=== PATIENT | female | born 1955 | race African-American/Black ===

== ENCOUNTER 2021-01-17 05:25 | Day surgery (SDC) | payer OTHER, SELFPAY ==
[~2021-01-17] VITALS: Ht 170.2 cm; Wt 87.1 kg
[2021-01-17] MEDS ORDERED: MIDAZOLAM 2 MG/2 ML VIAL ONE (07:33)
[2021-01-17] MEDS ORDERED: fentaNYL citrate 0.05 MG/ML VIAL ONE (07:33)
[2021-01-17] MEDS ORDERED: MIDAZOLAM 2 MG/2 ML VIAL IVP ONE (08:00)
== END 2021-01-17 08:40 | disposition home or self-care (01) ==
LOC: MDS 05:25 → MMU 05:26 → MDS 08:40
PROVIDERS: ATTEND Internal Medicine Gastroenterology
DX: K21.00 Gastro-esophageal reflux disease with esophagitis, without bleeding (principal); K44.9 Diaphragmatic hernia without obstruction or gangrene; I11.0 Hypertensive heart disease with heart failure; I50.9 Heart failure, unspecified; J44.9 Chronic obstructive pulmonary disease, unspecified; Z95.0 Presence of cardiac pacemaker; Z98.84 Bariatric surgery status; Z20.822 Contact with and (suspected) exposure to COVID-19
CPT/HCPCS: 36415; 86677; J2250; J3010

== ENCOUNTER 2022-02-03 09:04 | Emergency (ER) | payer OTHER ==
[~2022-02-03] VITALS: Ht 170.2 cm; Wt 91.2 kg
[2022-02-03 09:11] VITALS: BP 111/73
--- NOTE | 2022-02-03 09:24 | NUR ---
66F presents to ED with c/o SOB today and cough x1day. Pt reports ran out of Rx meds for CHF, and feels that she is holding a lot of fluid. Pt states normal weight is 193 lbs, and currently weighing 201 lbs. Pt reports a productive cough since yesterday, denies any fevers, chills, body aches upon assessment. Pt changed into gown and placed on bedside monitor.
[2022-02-03 09:42] LABS: BASOPHILS # (AUTO) 0.1 K/uL (0.00-0.22); BASOPHILS % (AUTO) 1.3 % (0.0-2.0); EOSINOPHILS # (AUTO) 0.2 K/uL (0-0.4); EOSINOPHILS % (AUTO) 5.4 % (0.0-4.0); HEMATOCRIT 39.9 % (36-48); HEMOGLOBIN 13.2 g/dL (12.0-16.0); LYMPHOCYTES # (AUTO) 1.2 K/uL (2.5-16.5); LYMPHOCYTES % (AUTO) 26.8 % (20.5-51.1); MEAN CORPUSCULAR HEMOGLOBIN 33 pg (27-31); MEAN CORPUSCULAR HGB CONC 33 g/dL (33-37); MEAN CORPUSCULAR VOLUME 100.1 fL (80-94); MONOCYTES # (AUTO) 0.6 K/uL (0.8-1.0); MONOCYTES % (AUTO) 12.4 % (1.7-9.3); NEUTROPHILS # (AUTO) 2.4 K/uL (1.8-7.7); NEUTROPHILS % (AUTO) 54.1 % (42.2-75.2); PLATELET COUNT (AUTO) 154 K/uL (140-450); RED BLOOD CELL COUNT(AUTO) 3.99 MIL/uL (4.20-5.40); RED CELL DISTRIBUTION WIDTH 14.4 % (11.6-13.7); WHITE BLOOD COUNT (AUTO) 4.5 K/uL (4.8-10.8)
[2022-02-03 09:52] LABS: ANION GAP 11.8 (8-16); CARBON DIOXIDE 31.9 mmol/L (21-32); CREATININE 1.7 mg/dL (0.6-1.3); POTASSIUM 3.7 mmol/L (3.5-5.1)
[2022-02-03] MEDS ORDERED: BUME1TAB92 PO (10:32)
[2022-02-03] MEDS ORDERED: ZAR2.5 PO ×2 (10:32→10:39)
[2022-02-03] MEDS ORDERED: RIVA20TA PO (10:32)
[2022-02-03] MEDS ORDERED: CLOP-68 PO (10:32)
[2022-02-03 11:41] VITALS: BP 122/71
--- NOTE | 2022-02-03 11:41 | NUR ---
Patient discharged with v/s stable. Written and verbal after care instructions given and explained. Patient alert, oriented and verbalized understanding of instructions. Ambulatory with to car. All questions addressed prior to discharge. ID band removed. Patient advised to follow up with PMD. Rx of Bumetanide, Clopidogrel, Rivaroxaban and Metolazone given. Patient educated on indication of medication including possible reaction and side effects. Opportunity to ask questions provided and answered.
== END 2022-02-03 11:41 | disposition home or self-care (01) ==
LOC: MED 09:04
DX: I11.0 Hypertensive heart disease with heart failure (principal); I50.9 Heart failure, unspecified; R06.02 Shortness of breath; J44.9 Chronic obstructive pulmonary disease, unspecified; Z79.899 Other long term (current) drug therapy; Z88.8 Allergy status to other drugs, medicaments and biological substances; Z88.1 Allergy status to other antibiotic agents
CPT/HCPCS: 36415; 71045; 80048; 83880; 84484; 85025; 99284

== ENCOUNTER 2022-02-14 09:28 | Emergency (ER) | payer OTHER ==
[~2022-02-14] VITALS: Ht 170.2 cm; Wt 91.6 kg
[~2022-02-14 09:28] MED LIST: BUME1TAB92 PO; CLOP-68 PO; RIVA20TA PO; ZAR2.5 PO
[2022-02-14 09:59] VITALS: BP 123/77
--- NOTE | 2022-02-14 10:57 | NUR ---
COVID, FLU SWABS DONE.
[2022-02-14] MEDS ORDERED: ACET-10509 PO (12:20)
[2022-02-14] MEDS ORDERED: AZIT250T4 PO (12:20)
[2022-02-14] MEDS ORDERED: PRED20TA5 PO (12:20)
[2022-02-14] MEDS ORDERED: [UNRECOGNIZED DRUG - CODE] PO (12:20)
[2022-02-14 12:45] VITALS: BP 123/77
--- NOTE | 2022-02-14 12:45 | NUR ---
Patient discharged with v/s stable. Written and verbal after care instructions given and explained. Patient alert, oriented and verbalized understanding of instructions. Ambulatory with steady gait. All questions addressed prior to discharge. ID band removed. Patient advised to follow up with PMD. Rx of tylenol, zithromax, mucosa dm, deltasone (sent) given. Patient educated on indication of medication including possible reaction and side effects. Opportunity to ask questions provided and answered. dx by vega beasley
--- NOTE | 2022-02-14 13:44 | NUR ---
Note agnes in EDM - 02/14/22 at 1359 by MEDPMR Patient discharged with v/s stable. Written and verbal after care instructions given and explained. Patient alert, oriented and verbalized understanding of instructions. Ambulatory with steady gait. All questions addressed prior to discharge. ID band removed. Patient advised to follow up with PMD. Rx of tylenol, zithromax, mucosa dm, deltasone (sent) given. Patient educated on indication of medication including possible reaction and side effects. Opportunity to ask questions provided and answered. dx by vega beasley
== END 2022-02-14 12:45 | disposition home or self-care (01) ==
LOC: MED 09:28
DX: J44.1 Chronic obstructive pulmonary disease with (acute) exacerbation (principal); Z20.822 Contact with and (suspected) exposure to COVID-19; I11.0 Hypertensive heart disease with heart failure; I50.9 Heart failure, unspecified; Z79.899 Other long term (current) drug therapy; Z88.8 Allergy status to other drugs, medicaments and biological substances; Z95.0 Presence of cardiac pacemaker
CPT/HCPCS: 71045; 99284

== ENCOUNTER 2022-03-01 16:19 | Emergency (ER) | payer OTHER ==
[~2022-03-01] VITALS: Ht 170.2 cm; Wt 92.5 kg
[~2022-03-01 16:19] MED LIST changes: +ACET-10509 PO; +AZIT250T4 PO; +PRED20TA5 PO; +[UNRECOGNIZED DRUG - CODE] PO
[2022-03-01 16:22] VITALS: BP 137/71
[2022-03-01] MEDS ORDERED: ALBUTEROL 0.083% 2.5 MG/3 ML NEBU INH ONE (17:40)
[2022-03-01] MEDS ORDERED: predniSONE 20 MG TAB PO ONE (17:40)
[2022-03-01 18:15] LABS: BASOPHILS # (AUTO) 0.1 K/uL (0.00-0.22); EOSINOPHILS # (AUTO) 0.2 K/uL (0-0.4); EOSINOPHILS % (AUTO) 2.4 % (0.0-4.0); HEMATOCRIT 41.4 % (36-48); LYMPHOCYTES # (AUTO) 1.5 K/uL (2.5-16.5); LYMPHOCYTES % (AUTO) 18.8 % (20.5-51.1); MEAN CORPUSCULAR HEMOGLOBIN 33 pg (27-31); MEAN CORPUSCULAR HGB CONC 34 g/dL (33-37); MEAN CORPUSCULAR VOLUME 98.4 fL (80-94); MONOCYTES # (AUTO) 0.7 K/uL (0.8-1.0); MONOCYTES % (AUTO) 8.6 % (1.7-9.3); NEUTROPHILS # (AUTO) 5.4 K/uL (1.8-7.7); NEUTROPHILS % (AUTO) 69.2 % (42.2-75.2); PLATELET COUNT (AUTO) 175 K/uL (140-450); RED BLOOD CELL COUNT(AUTO) 4.21 MIL/uL (4.20-5.40); RED CELL DISTRIBUTION WIDTH 14.1 % (11.6-13.7); WHITE BLOOD COUNT (AUTO) 7.8 K/uL (4.8-10.8)
[2022-03-01 18:29] LABS: ANION GAP 15.1 (8-16); CARBON DIOXIDE 28.8 mmol/L (21-32); CREATININE 1.6 mg/dL (0.6-1.3); POTASSIUM 3.9 mmol/L (3.5-5.1)
[2022-03-01] MEDS ORDERED: PRED20TA5 PO (19:27)
[2022-03-01 19:33] VITALS: BP 137/71
== END 2022-03-01 19:33 | disposition home or self-care (01) ==
LOC: MED 16:19
DX: J44.1 Chronic obstructive pulmonary disease with (acute) exacerbation (principal); Z20.822 Contact with and (suspected) exposure to COVID-19; I11.0 Hypertensive heart disease with heart failure; I50.9 Heart failure, unspecified; Z79.899 Other long term (current) drug therapy; Z79.2 Long term (current) use of antibiotics; Z79.01 Long term (current) use of anticoagulants; Z88.8 Allergy status to other drugs, medicaments and biological substances
CPT/HCPCS: 36415; 71045; 80048; 83880; 84484; 85025; 87426; 87804; 94640; 99285; J7512; J7613; 93005

== ENCOUNTER 2022-03-14 14:46 | Emergency (ER) | payer OTHER ==
[~2022-03-14] VITALS: Ht 175.3 cm; Wt 90.7 kg
--- NOTE | 2022-03-14 15:01 | NUR ---
NA [id number]
[2022-03-14 15:06] VITALS: BP 122/68
--- NOTE | 2022-03-14 15:15 | NUR ---
66/f WALKED IN C/O DIZZINESS AND GEN WEAK ONSET THIS MORNING. PT REPORTS ROOM IS SPINNING. DENIES NVD. AAO4, AMBULATORY, VITALS STABLE. ON TRANSPLANTER ORCHID, ON GOWN. PMH: CHOLESTEROL, COPD, CHF, HTN
--- NOTE | 2022-03-14 15:30 | NUR ---
BLOOD DRAWN AND SENT TO LAB
[2022-03-14 15:42] LABS: BASOPHILS # (AUTO) 0.1 K/uL (0.00-0.22); BASOPHILS % (AUTO) 1.2 % (0.0-2.0); EOSINOPHILS # (AUTO) 0.3 K/uL (0-0.4); EOSINOPHILS % (AUTO) 4.2 % (0.0-4.0); HEMOGLOBIN 13.5 g/dL (12.0-16.0); LYMPHOCYTES # (AUTO) 1.3 K/uL (2.5-16.5); LYMPHOCYTES % (AUTO) 19.9 % (20.5-51.1); MEAN CORPUSCULAR HEMOGLOBIN 33 pg (27-31); MEAN CORPUSCULAR HGB CONC 33 g/dL (33-37); MEAN CORPUSCULAR VOLUME 101.5 fL (80-94); MONOCYTES # (AUTO) 0.6 K/uL (0.8-1.0); MONOCYTES % (AUTO) 9.8 % (1.7-9.3); NEUTROPHILS # (AUTO) 4.2 K/uL (1.8-7.7); NEUTROPHILS % (AUTO) 64.9 % (42.2-75.2); PLATELET COUNT (AUTO) 165 K/uL (140-450); RED BLOOD CELL COUNT(AUTO) 4.04 MIL/uL (4.20-5.40); RED CELL DISTRIBUTION WIDTH 14.6 % (11.6-13.7); WHITE BLOOD COUNT (AUTO) 6.5 K/uL (4.8-10.8)
[2022-03-14 15:42] LABS: APPEARANCE,URINE SL CLOUDY (CLEAR); BILIRUBIN,URINE NEGATIVE (NEGATIVE); BLOOD, URINE NEGATIVE (NEGATIVE); COLOR,URINE YELLOW (YELLOW); LEUKOCYTE ESTERASE ,URINE NEGATIVE (NEGATIVE); NITRITE, URINE NEGATIVE (NEGATIVE); UGLUCOSE NEGATIVE (NEGATIVE)
[2022-03-14] MEDS: ONDANSETRON 4 MG/2 ML VIAL IVP ONE (15:46)
[2022-03-14] MEDS: NACL 0.9% 500 ML IV ONE (15:46)
--- NOTE | 2022-03-14 15:52 | NUR ---
XR DONE AT BEDSIDE
[2022-03-14 16:05] LABS: ALBUMIN 3.5 g/dL (3.4-5.0); ANION GAP 9.4 (8-16); ASPARTATE AMINOTRANSFERASE 21 U/L (15-37); CARBON DIOXIDE 31.8 mmol/L (21-32); CHLORIDE 107 mmol/L (98-107); CREATININE 1.5 mg/dL (0.6-1.3); GFR ARICAN-AMERICAN 45 mL/min (>90); GLUCOSE 101 mg/dL (74-106); POTASSIUM 5.2 mmol/L (3.5-5.1); TOTAL BILIRUBIN 0.4 mg/dL (0.0-1.0); UREA NITROGEN, BLOOD 31 mg/dL (7-18)
[2022-03-14 16:06] LABS: SODIUM SERUM 143 mmol/L (136-145)
[2022-03-14] MEDS ORDERED: ONDA-188 PO (16:38)
[2022-03-14] MEDS ORDERED: SODI10PO PO (16:41)
== END 2022-03-14 16:45 | disposition home or self-care (01) ==
LOC: MED 14:46
DX: R42 Dizziness and giddiness (principal); E87.6 Hypokalemia; I11.0 Hypertensive heart disease with heart failure; I50.9 Heart failure, unspecified; J44.9 Chronic obstructive pulmonary disease, unspecified; E87.5 Hyperkalemia; Z95.0 Presence of cardiac pacemaker; Z79.899 Other long term (current) drug therapy; Z88.8 Allergy status to other drugs, medicaments and biological substances; Z88.1 Allergy status to other antibiotic agents
CPT/HCPCS: 36415; 71045; 80053; 81003; 84484; 85025; 93005; 96374; 99285; J2405; J7030

== ENCOUNTER 2022-03-25 19:56 | Inpatient (IN) | payer OTHER ==
[~2022-03-25] VITALS: Ht 170.2 cm; Wt 93.0 kg
[~2022-03-25 19:56] MED LIST changes: +ONDA-188 PO; +SODI10PO PO
[2022-03-25 20:11] VITALS: BP 128/77
--- NOTE | 2022-03-25 20:14 | NUR ---
TO LOBBY A/W BED AMBULATORY
[2022-03-25 22:31] LABS: BASOPHILS # (AUTO) 0.1 K/uL (0.00-0.22); BASOPHILS % (AUTO) 1.3 % (0.0-2.0); EOSINOPHILS # (AUTO) 0.2 K/uL (0-0.4); EOSINOPHILS % (AUTO) 3.1 % (0.0-4.0); HEMATOCRIT 43.9 % (36-48); HEMOGLOBIN 14.4 g/dL (12.0-16.0); LYMPHOCYTES # (AUTO) 1.9 K/uL (2.5-16.5); LYMPHOCYTES % (AUTO) 23.9 % (20.5-51.1); MEAN CORPUSCULAR HEMOGLOBIN 33 pg (27-31); MEAN CORPUSCULAR HGB CONC 33 g/dL (33-37); MEAN CORPUSCULAR VOLUME 101.1 fL (80-94); MONOCYTES # (AUTO) 0.8 K/uL (0.8-1.0); NEUTROPHILS # (AUTO) 4.9 K/uL (1.8-7.7); NEUTROPHILS % (AUTO) 61.7 % (42.2-75.2); PLATELET COUNT (AUTO) 164 K/uL (140-450); RED BLOOD CELL COUNT(AUTO) 4.35 MIL/uL (4.20-5.40); RED CELL DISTRIBUTION WIDTH 15.1 % (11.6-13.7); WHITE BLOOD COUNT (AUTO) 7.9 K/uL (4.8-10.8)
[2022-03-25 22:59] LABS: ALBUMIN 3.7 g/dL (3.4-5.0); ANION GAP 14.4 (8-16); ASPARTATE AMINOTRANSFERASE 15 U/L (15-37); CARBON DIOXIDE 31.5 mmol/L (21-32); CHLORIDE 100 mmol/L (98-107); CREATININE 1.7 mg/dL (0.6-1.3); GFR ARICAN-AMERICAN 39 mL/min (>90); GLUCOSE 95 mg/dL (74-106); POTASSIUM 3.9 mmol/L (3.5-5.1); SODIUM SERUM 142 mmol/L (136-145); TOTAL BILIRUBIN 0.4 mg/dL (0.0-1.0); UREA NITROGEN, BLOOD 40 mg/dL (7-18)
--- NOTE | 2022-03-26 | NUR ---
Ambulatory to bed 7, on nuclear monitoring technician
--- NOTE | 2022-03-26 00:10 | NUR ---
66 Y/O F presents with difficulty breathing xtoday. pt stated she feels SOB with R lower back pain. pt denies any NVD. pt is A&Ox4, skin intact. PMH- HTN,CHF,COPD,pacemaker, gastric sleeve allergies- IVELISSE-Inhibitors
--- NOTE | 2022-03-26 00:29 | NUR ---
Dr. Valderrama examining patient.
[2022-03-26] MEDS ORDERED: BUMETANIDE 1 MG TAB PO SCH (00:35)
[2022-03-26] MEDS ORDERED: ALBUTEROL 0.083% 2.5 MG/3 ML NEBU INH ONE (00:35)
[2022-03-26] MEDS ORDERED: ASPIRIN 325 MG TAB PO ONE (00:35)
--- NOTE | 2022-03-26 00:56 | NUR ---
SPOKE TO KAREN FROM [facility] FOR CLINICALS. STATES PT CAN BE ADMITTED FOR OBSERVATIONS TELE. ADMITING MADE AWARE
--- NOTE | 2022-03-26 01:17 | NUR ---
pt tolerated food well
[2022-03-26] MEDS ORDERED: LORazepam 1 MG TAB PO PRN (01:40)
[2022-03-26] MEDS ORDERED: ONDANSETRON 4 MG/2 ML VIAL IVP PRN (01:50)
[2022-03-26] MEDS: BUMETANIDE 1 MG/4 ML VIAL IV SCH ×3 (01:50→21:20)
--- NOTE | 2022-03-26 04:38 | NUR ---
pt resting, on engine monitor
--- NOTE | 2022-03-26 05:45 | NUR ---
pt ambulatory to restroom
--- NOTE | 2022-03-26 05:50 | NUR ---
pt back in room, on potline monitor. awaiting admission
--- NOTE | 2022-03-26 06:26 | NUR ---
Dr. Hairston examining patient.
--- NOTE | 2022-03-26 07:28 | NUR ---
transfer of care to [facility]
--- NOTE | 2022-03-26 07:30 | NUR ---
Report recieved from LINETTE Blake for transfer of care.
--- NOTE | 2022-03-26 08:17 | NUR ---
Patient will be admitted to care of Dr. Minor. Admited to Telemetry. Will go to room 119-A. Belongings list completed. Report to TEREZA Parsons.
[2022-03-26 08:20] VITALS: BP 134/56
--- NOTE | 2022-03-26 08:20 | NUR ---
RECEIVED REPORT FROM ER NURSE JUAN FOR CONTINUITY OF CARE. STABLE ON TRANSPORT AND NO SIGNS OF DISTRESS. PT IS A&OX4, ON RA, SKIN INTACT, NO COMPLAINT OF PAIN AND AMBULATES TO RESTROOM. PT HAS AN IV ON HER R WRIST 22G THAT IS INTACT AND SALINE LOCKED. ALL SAFETY MEASURES IN PLACE WITH CALL LIGHT WITHIN REACH AND BED IN LOW POSITION. WILL CONTINUE TO MONITOR.
[2022-03-26] MEDS ORDERED: RIVAROXABAN 10 MG TAB PO SCH (09:00)
[2022-03-26] MEDS: DOCUSATE SODIUM 100 MG GELCAP PO SCH (09:00)
[2022-03-26] MEDS: metOLazone 2.5 MG TAB PO SCH (09:19)
[2022-03-26] MEDS: CLOPIDOGREL 75 MG TAB PO SCH (09:20)
--- NOTE | 2022-03-26 09:34 | NUR ---
PATIENT HAS BEEN SCREENED AND CATEGORIZED MODERATE NUTRITION RISK. PATIENT WILL BE SEEN WITHIN 3-5 DAYS OF ADMISSION. REVIEWED BY DON SANTACRUZ RD
[2022-03-26 12:00] VITALS: BP 119/89
[2022-03-26 16:00] VITALS: BP 160/84
[2022-03-26] MEDS: diphenhydrAMINE 50 MG/ML VIAL IVP PRN (18:44)
--- NOTE | 2022-03-26 19:10 | NUR ---
ENDORSED PT TO NIGHTSHIFT NURSE FOR CONTINUITY OF CARE. PT IS STABLE AT THIS TIME.
--- NOTE | 2022-03-26 19:11 | NUR ---
RECD. RESTING IN BED, AWAKE, A/OX4. RESPIRATION EVEN AND UNLABORED. ON ROOM AIR. IV SALINE LOCK AT THE RIGHT WRIST G22 AND LEFT AC G20, PATENT AND INTACT. AMBULATORY TO THE BATHROOM. DENIES PAIN 0/10.
[2022-03-26 20:00] VITALS: BP 119/93
--- NOTE | 2022-03-26 20:00 | NUR ---
Patient's Plan of Care was discussed and reviewed with WOODWORKING CRAFTSMAN: SHASHI MONGE
[2022-03-26] MEDS: RIVAROXABAN 10 MG TAB PO SCH (21:32)
--- NOTE | 2022-03-26 21:32 | NUR ---
SLEEPING COMFORTABLY IN BED. ADMINISTERED SCHEDULED MEDICATION.
[2022-03-27] VITALS: BP 100/58
--- NOTE | 2022-03-27 | NUR ---
SINUS RHYTHM ON TELE MONITORING BUT WITH FREQ MULTI FOCAL PVCs, BBB. VS STABLE. DENIES PAIN 0/10.
--- NOTE | 2022-03-27 02:00 | NUR ---
STILL SLEEPING COMFORTABLY IN BED.
[2022-03-27 04:00] VITALS: BP 111/63
--- NOTE | 2022-03-27 04:00 | NUR ---
SR ON TELE MONITORING WITH BUNDLE BRANCH BLOCK AND MULTI FOCAL PVCs, PATIENT VS REMAIN STABLE.
[2022-03-27 06:09] LABS: BASOPHILS # (AUTO) 0.1 K/uL (0.00-0.22); BASOPHILS % (AUTO) 0.8 % (0.0-2.0); EOSINOPHILS # (AUTO) 0.2 K/uL (0-0.4); EOSINOPHILS % (AUTO) 2.7 % (0.0-4.0); HEMATOCRIT 47.1 % (36-48); HEMOGLOBIN 15.7 g/dL (12.0-16.0); LYMPHOCYTES # (AUTO) 1.5 K/uL (2.5-16.5); LYMPHOCYTES % (AUTO) 20.7 % (20.5-51.1); MEAN CORPUSCULAR HEMOGLOBIN 33 pg (27-31); MEAN CORPUSCULAR HGB CONC 33 g/dL (33-37); MONOCYTES # (AUTO) 0.9 K/uL (0.8-1.0); MONOCYTES % (AUTO) 12.6 % (1.7-9.3); NEUTROPHILS # (AUTO) 4.6 K/uL (1.8-7.7); NEUTROPHILS % (AUTO) 63.2 % (42.2-75.2); PLATELET COUNT (AUTO) 174 K/uL (140-450); RED BLOOD CELL COUNT(AUTO) 4.76 MIL/uL (4.20-5.40); RED CELL DISTRIBUTION WIDTH 14.8 % (11.6-13.7); WHITE BLOOD COUNT (AUTO) 7.3 K/uL (4.8-10.8)
--- NOTE | 2022-03-27 07:10 | NUR ---
CONDITION REMAIN STABLE. ENDORSED TO NICHOLAS SUE FOR CONTINUITY OF CARE.
--- NOTE | 2022-03-27 07:11 | NUR ---
ASSUMED CONTINUITY OF CARE. INITIAL ASSESSMENT DONE. EXPLAINED DIAGNOSIS, PLAN OF CARE, PAIN MANAGEMENT TEACHING, FLUID RESTRICTION, USE OF CALL LIGHT/BED/TV/BATHROOM. VERBALIZED UNDERSTANDING. CALL LIGHT WITHIN REACH.
[2022-03-27 08:03] LABS: ALBUMIN 3.9 g/dL (3.4-5.0); ANION GAP 15.1 (8-16); CARBON DIOXIDE 31.7 mmol/L (21-32); CREATININE 1.7 mg/dL (0.6-1.3); TOTAL BILIRUBIN 0.9 mg/dL (0.0-1.0)
[2022-03-27 08:50] VITALS: BP 118/73
--- NOTE | 2022-03-27 08:50 | NUR ---
RE-CHECKED VITALS SIGNS. NO C/O PAIN. VS WITHIN NORMAL LIMIT AND DOCUMENTED.
[2022-03-27 09:08] LABS: POTASSIUM 2.8 mmol/L (3.5-5.1)
[2022-03-27] MEDS: BUMETANIDE 1 MG/4 ML VIAL IV SCH ×2 (09:35→20:56)
[2022-03-27] MEDS: DOCUSATE SODIUM 100 MG GELCAP PO SCH (09:43)
[2022-03-27] MEDS: metOLazone 2.5 MG TAB PO SCH (09:44)
[2022-03-27] MEDS: CLOPIDOGREL 75 MG TAB PO SCH (09:44)
[2022-03-27] MEDS ORDERED: POTASSIUM CHLORIDE 10 MEQ TABER PO SCH ×2 (10:00→12:00)
[2022-03-27 12:00] VITALS: BP 134/82
--- NOTE | 2022-03-27 15:20 | NUR ---
C/O ITCHINESS ON BUE. NO SKIN RASH, NO SKIN REDNESS. NO SOB, NOTED. WILL MEDICATE PER MD ORDER.
[2022-03-27] MEDS: diphenhydrAMINE 50 MG/ML VIAL IVP PRN (15:23)
[2022-03-27 16:00] VITALS: BP 111/60
--- NOTE | 2022-03-27 16:30 | NUR ---
SEEN WATCHING TV AT THIS TIME. NO C/O ITCHINESS. NO SOB, NOTED. ASKED TO CALL NURSE IF NEEDS HELP. VERBALIZED UNDERSTANDING. CALL LIGHT WITHIN REACH.
--- NOTE | 2022-03-27 19:11 | NUR ---
REPORT GIVEN TO ALFREDO FAJARDO FOR CONTINUITY OF CARE. IN STABLE CONDITION.
--- NOTE | 2022-03-27 19:15 | NUR ---
RECEIVED PT FROM NURSE PETERSON FOR CONTINUITY OF CARE. PT ASLEEP IN BED.ON ROOM AIR, BREATHING EVEN AND UNLABORED. NO RESPIRATORY DISTRESS NOTED. IV ON R WRIST G22,SL.SKIN WARM, DRY AND INTACT. ALL PRECAUTIONS IN PLACE. CALL LIGHT WITHIN REACH. WILL CONTINUE TO MONITOR.
[2022-03-27 20:00] VITALS: BP 136/66
[2022-03-27] MEDS: RIVAROXABAN 10 MG TAB PO SCH (20:57)
--- NOTE | 2022-03-27 22:00 | NUR ---
Complaining of pain to IV site. Restarted on L HAND G22. Successful after 1 attempt.Will observe for any signs of infiltration.
--- NOTE | 2022-03-27 22:10 | NUR ---
SCHEDULED MEDICATIONS. NO DRUG REACTIONS NOTED. ALL PRECAUTIONS IN PLACE. CALL LIGHT WITHIN REACH. WILL CONTINUE TO MONITOR.
[2022-03-27] MEDS: ZOLPIDEM 5 MG TAB PO PRN (22:11)
[2022-03-28] VITALS: BP 96/75
[2022-03-28 04:00] VITALS: BP 112/53
--- NOTE | 2022-03-28 07:05 | NUR ---
PT IS STABLE. NO ACUTE EVENTS THROUGHOUT THE NIGHT.NO S/SX OF DISTRESS NOTED. ALL NEEDS ATTENDED. NO COMPLAINS AT THIS MOMENT.ALL PRECAUTIONS IN PLACE. CALL LIGHT WITHIN REACH. WILL ENDORSE TO DAY SHIFT RN.
--- NOTE | 2022-03-28 07:08 | NUR ---
ASSUMED CONTINUITY OF CARE. INITIAL ASSESSMENT DONE. KEEP COMFORTABLE ON BED. EXPLAINED DIAGNOSIS, PLAN OF CARE, PAIN MANAGEMENT TEACHING, USE OF CALL LIGHT/BED/TV/BATHROOM. VERBALIZED UNDERSTANDING. CALL LIGHT WITHIN REACH.
[2022-03-28 07:29] LABS: BASOPHILS % (AUTO) 0.7 % (0.0-2.0); EOSINOPHILS # (AUTO) 0.2 K/uL (0-0.4); EOSINOPHILS % (AUTO) 2.8 % (0.0-4.0); HEMATOCRIT 47.8 % (36-48); HEMOGLOBIN 15.9 g/dL (12.0-16.0); LYMPHOCYTES # (AUTO) 1.4 K/uL (2.5-16.5); LYMPHOCYTES % (AUTO) 23.4 % (20.5-51.1); MEAN CORPUSCULAR HEMOGLOBIN 33 pg (27-31); MEAN CORPUSCULAR HGB CONC 33 g/dL (33-37); MEAN CORPUSCULAR VOLUME 99.5 fL (80-94); MONOCYTES # (AUTO) 0.8 K/uL (0.8-1.0); MONOCYTES % (AUTO) 14.4 % (1.7-9.3); NEUTROPHILS # (AUTO) 3.5 K/uL (1.8-7.7); NEUTROPHILS % (AUTO) 58.7 % (42.2-75.2); PLATELET COUNT (AUTO) 159 K/uL (140-450); RED CELL DISTRIBUTION WIDTH 14.9 % (11.6-13.7); WHITE BLOOD COUNT (AUTO) 5.9 K/uL (4.8-10.8)
[2022-03-28 07:54] LABS: ALBUMIN 3.9 g/dL (3.4-5.0); ANION GAP 15.6 (8-16); MAGNESIUM 2.1 mg/dL (1.8-2.4); TOTAL BILIRUBIN 0.9 mg/dL (0.0-1.0)
[2022-03-28 08:00] VITALS: BP 108/71
[2022-03-28 08:30] LABS: POTASSIUM 2.6 mmol/L (3.5-5.1)
[2022-03-28] MEDS ORDERED: POTASSIUM CHLORIDE 10 MEQ TABER PO SCH ×2 (09:00→13:30)
[2022-03-28] MEDS: BUMETANIDE 1 MG/4 ML VIAL IV SCH ×2 (09:00→20:42)
[2022-03-28] MEDS: metOLazone 2.5 MG TAB PO SCH (09:00)
[2022-03-28] MEDS ORDERED: COMMUNICATION ORDER MC PRN ×2 (09:00→09:05)
[2022-03-28] MEDS: CLOPIDOGREL 75 MG TAB PO SCH (09:13)
[2022-03-28] MEDS: DOCUSATE SODIUM 100 MG GELCAP PO SCH (09:13)
[2022-03-28] MEDS ORDERED: POTASSIUM CHLORIDE 40 MEQ, LIDOCAINE 1% 25 MG in NACL 0.9% 250 ML IV SCH (09:30)
--- NOTE | 2022-03-28 11:31 | NUR ---
PAGED DR. CISSE REGARDING PT. REFUSAL OF K-RIDER INFUSION DUE TO C/O PAIN AT IV SITE. INFORMED CHARGE NURSE KIRAN FAJARDO.
[2022-03-28 12:00] VITALS: BP_SYST 108; BP_SYST 112; BP_DIAS 71; BP_DIAS 95
--- NOTE | 2022-03-28 15:45 | NUR ---
DR. CISSE CAME AND SPOKE TO PT. AT BEDSIDE.
[2022-03-28 16:00] VITALS: BP 123/59
--- NOTE | 2022-03-28 16:25 | NUR ---
DC PLANNING DC PLANNING ASSESSMENT COMPLETE SEE ASSESSMENT FOR DETAILS PT REPORTS TENTATIVE DC PLAN IS TO RETURN HOME WITH BF PROVIDING TRANSPORTATION, WHEN MEDICALLY STABLE. Addendum: 03/28/22 at 1626 by Wilfred PARNELL Amended: Links added.
--- NOTE | 2022-03-28 17:46 | NUR ---
PAGED DR. CISSE TO CLARIFY ORDER OF XARELTO 20 MG PO HS AND PLAVIX 75 MG PO DAILY.
--- NOTE | 2022-03-28 18:48 | NUR ---
DR. CISSE PAGED AND ORDERED TO CONTINUE XARELTO AND PLAVIX ORDERED. CHARGE NURSE KIRAN -TEREZA CALLED PHARMACY AND RELAYED MESSAGE FROM DR. CISSE TO CONTINUE BOTH MEDS MENTIONED.
--- NOTE | 2022-03-28 19:05 | NUR ---
REPORT GIVEN TO ALFREDO BRAN PT. IN STABLE CONDITION.
--- NOTE | 2022-03-28 19:10 | NUR ---
RECEIVED PT FROM NURSE PETERSON FOR CONTINUITY OF CARE. PT ASLEEP IN BED.ON ROOM AIR, BREATHING EVEN AND UNLABORED. NO RESPIRATORY DISTRESS NOTED. IV ON l hand G22,SL.SKIN WARM, DRY AND INTACT. ALL PRECAUTIONS IN PLACE. CALL LIGHT WITHIN REACH. WILL CONTINUE TO MONITOR.
[2022-03-28 20:00] VITALS: BP 112/67
[2022-03-28] MEDS: RIVAROXABAN 10 MG TAB PO SCH (20:42)
[2022-03-28] MEDS: ZOLPIDEM 5 MG TAB PO PRN (20:43)
--- NOTE | 2022-03-28 21:06 | NUR ---
SCHEDULED MEDICATIONS. NO DRUG REACTIONS NOTED. PT REFUSED BUMEX. ALL PRECAUTIONS IN PLACE. CALL LIGHT WITHIN REACH. WILL CONTINUE TO MONITOR.
[2022-03-29] VITALS: BP 116/71
--- NOTE | 2022-03-29 | NUR ---
VITALS STABLE. NO ACUTE DISTRESS NOTED. NO COMPLAINS OF PAIN. ALL PRECAUTIONS IN PLACE. WILL CONTINUE TO MONITOR.
--- NOTE | 2022-03-29 03:30 | NUR ---
PT ASLEEP. NO S/SX OF DISTRESS NOTED.VISIBLE CHEST RISE AND FALL. ALL PRECAUTIONS IN PLACE. WILL CONTINUE TO MONITOR.
[2022-03-29 04:00] VITALS: BP 109/60
[2022-03-29 07:06] LABS: BASOPHILS # (AUTO) 0.1 K/uL (0.00-0.22); BASOPHILS % (AUTO) 0.9 % (0.0-2.0); EOSINOPHILS # (AUTO) 0.2 K/uL (0-0.4); EOSINOPHILS % (AUTO) 3.3 % (0.0-4.0); HEMATOCRIT 47.3 % (36-48); HEMOGLOBIN 15.7 g/dL (12.0-16.0); LYMPHOCYTES # (AUTO) 1.2 K/uL (2.5-16.5); LYMPHOCYTES % (AUTO) 20.4 % (20.5-51.1); MEAN CORPUSCULAR HEMOGLOBIN 33 pg (27-31); MEAN CORPUSCULAR HGB CONC 33 g/dL (33-37); MONOCYTES # (AUTO) 0.9 K/uL (0.8-1.0); MONOCYTES % (AUTO) 15.5 % (1.7-9.3); NEUTROPHILS # (AUTO) 3.6 K/uL (1.8-7.7); NEUTROPHILS % (AUTO) 59.9 % (42.2-75.2); PLATELET COUNT (AUTO) 144 K/uL (140-450); RED BLOOD CELL COUNT(AUTO) 4.73 MIL/uL (4.20-5.40); RED CELL DISTRIBUTION WIDTH 14.7 % (11.6-13.7)
--- NOTE | 2022-03-29 07:30 | NUR ---
RECIEVED PATIENT FROM PLANNING DIVISION SUPERINTENDENT NURSE.PATIENT IS VERBALLY ACTIVE.VITALS ARE STABLE.NO DISTRESS NOTED.ALL SAFETY MEASURES IN PLACE.WILL CONTINUE TO MONITOR.
[2022-03-29 07:38] LABS: ALBUMIN 3.9 g/dL (3.4-5.0); ANION GAP 12.9 (8-16); CARBON DIOXIDE 31.5 mmol/L (21-32); CREATININE 1.8 mg/dL (0.6-1.3); MAGNESIUM 2.3 mg/dL (1.8-2.4); POTASSIUM 3.4 mmol/L (3.5-5.1); TOTAL BILIRUBIN 1.1 mg/dL (0.0-1.0)
[2022-03-29 08:00] VITALS: BP 112/67
--- NOTE | 2022-03-29 08:10 | NUR ---
PATIENT COMPLAINED OF CHEST PAIN, TELE STRIPS SHOWS PACED RHYTHM.NOTIFIED MD REGARDING THE ORDERS.MEDICATED PER PRN ORDERS.ON O2 2 L.NO OTHER DISTRESS NOTED.WILL CONTINUE TO MONITOR.
--- NOTE | 2022-03-29 08:15 | NUR ---
PATIENT REFUSED METOLAZONE TAB.SHE TOLD SHE NEEDS TOTALK TO THE DOCTOR. NOTIFIED
[2022-03-29] MEDS: MORPHINE SULFATE 2 MG/ML SYR IVP PRN ×2 (08:26→17:11)
[2022-03-29] MEDS ORDERED: POTASSIUM CHLORIDE 10 MEQ TABER PO SCH (08:30)
[2022-03-29] MEDS: BUMETANIDE 1 MG/4 ML VIAL IV SCH (08:45)
[2022-03-29] MEDS: CLOPIDOGREL 75 MG TAB PO SCH (08:46)
[2022-03-29] MEDS: DOCUSATE SODIUM 100 MG GELCAP PO SCH (08:46)
[2022-03-29] MEDS: metOLazone 2.5 MG TAB PO SCH (08:53)
[2022-03-29] MEDS ORDERED: PANTOPRAZOLE 40 MG TABEC PO SCH (09:00)
[2022-03-29 12:00] VITALS: BP 121/67
--- NOTE | 2022-03-29 12:59 | NUR ---
PATIENT ALERT AND ORIENTED.NO COMPLAINS OF PAIN NOW.FREQUENT ROUNDS DONE.ALL SAFETY MEASURES IN PLACE.WILL CONTINUE TO MONITOR.
--- NOTE | 2022-03-29 15:44 | NUR ---
03/29/22 RD INITIAL ASSESSMENT COMPLETED PLEASE REFER TO NUTRITION ASSESSMENT UNDER CARE ACTIVITY FOR ESTIMATED NUTRITIONAL NEEDS. 1. CONTINUE CARDIAC DIET TOLERATED 2. PROVIDED NUTRITION EDUCATION AND HANDOUTS FOR CHF 3. MONITOR PO INTAKE 4. RD TO FOLLOW-UP 7 DAYS, LOW RISK REVIEWED BY DON SANTACRUZ RD
--- NOTE | 2022-03-29 17:00 | NUR ---
DISCHARGED THE PATIENT REGARDING THE ORDER.ALL DISCHARGE INSTRUCTIONS GIVEN,VITALS ARE STABLE.
[2022-03-29 17:36] VITALS: BP 125/80
== END 2022-03-29 18:39 | disposition home or self-care (01) | DRG 194 ==
LOC: MED 19:56 → MTU 03-26 01:48 → OBSVTOIN 03-26 15:12
PROVIDERS: ADMIT Hospitalist; ATTEND Hospitalist
DX: I11.0 Hypertensive heart disease with heart failure (principal); N17.9 Acute kidney failure, unspecified; R65.10 Systemic inflammatory response syndrome (SIRS) of non-infectious origin without acute organ dysfunction; E87.6 Hypokalemia; J44.9 Chronic obstructive pulmonary disease, unspecified; N28.9 Disorder of kidney and ureter, unspecified; Z20.822 Contact with and (suspected) exposure to COVID-19; Z88.8 Allergy status to other drugs, medicaments and biological substances; Z79.899 Other long term (current) drug therapy; I50.9 Heart failure, unspecified
CPT/HCPCS: 36415; 71045; 71250; 80053; 83735; 83880; 84484; 85025; 87081; 93005; 99285; J1200; J2001; J2270; J3480; J3490; J7030; J7613

== ENCOUNTER 2022-05-24 13:00 | Emergency (ER) | payer OTHER ==
[~2022-05-24] VITALS: Ht 170.2 cm; Wt 92.5 kg
[2022-05-24 13:05] VITALS: BP 137/76
--- NOTE | 2022-05-24 14:40 | NUR ---
66 y/o female bib self with c/o productive cough and diarrhea x 7 days. Patient was seen on 05/18/22 at [place] and was given antibiotic for Pneumonia. Patient left from [place] without discharge paperwork. Patient has been medicating with Pepto-Bismuth and Mucinex. Medical History: CHF, HTN, HDL, Kidney Disease, Sleep Apnea NKDA
[2022-05-24 14:51] LABS: BASOPHILS # (AUTO) 0.1 K/uL (0.00-0.22); BASOPHILS % (AUTO) 1.1 % (0.0-2.0); EOSINOPHILS # (AUTO) 0.3 K/uL (0-0.4); EOSINOPHILS % (AUTO) 3.7 % (0.0-4.0); HEMATOCRIT 42.5 % (36-48); LYMPHOCYTES # (AUTO) 1.4 K/uL (2.5-16.5); LYMPHOCYTES % (AUTO) 17.9 % (20.5-51.1); MEAN CORPUSCULAR HEMOGLOBIN 33 pg (27-31); MEAN CORPUSCULAR HGB CONC 33 g/dL (33-37); MEAN CORPUSCULAR VOLUME 100.7 fL (80-94); MONOCYTES # (AUTO) 0.9 K/uL (0.8-1.0); MONOCYTES % (AUTO) 11.3 % (1.7-9.3); NEUTROPHILS # (AUTO) 5.1 K/uL (1.8-7.7); PLATELET COUNT (AUTO) 181 K/uL (140-450); RED BLOOD CELL COUNT(AUTO) 4.22 MIL/uL (4.20-5.40); WHITE BLOOD COUNT (AUTO) 7.7 K/uL (4.8-10.8)
[2022-05-24 15:02] LABS: ALBUMIN 3.1 g/dL (3.4-5.0); CARBON DIOXIDE 30.9 mmol/L (21-32); CREATININE 1.4 mg/dL (0.6-1.3); POTASSIUM 3.9 mmol/L (3.5-5.1); TOTAL BILIRUBIN 0.4 mg/dL (0.0-1.0)
[2022-05-24] MEDS ORDERED: BUME1TAB92 PO (15:47)
[2022-05-24 16:12] VITALS: BP 130/91
--- NOTE | 2022-05-24 16:12 | NUR ---
Patient discharged with v/s stable. Written and verbal after care instructions given. Patient alert, oriented and verbalized understanding of instructions. Ambulatory with steady gait. All questions addressed prior to discharge. ID band removed. Patient advised to follow up with PMD. Rx of Bumex given. Opportunity to ask questions provided and answered.
--- NOTE | 2022-05-24 16:15 | NUR ---
The patient's care was reviewed and supervised by Anjali Pineda RN.
== END 2022-05-24 16:12 | disposition home or self-care (01) ==
LOC: MED 13:00
DX: I50.9 Heart failure, unspecified (principal); I10 Essential (primary) hypertension; J44.9 Chronic obstructive pulmonary disease, unspecified; Z88.8 Allergy status to other drugs, medicaments and biological substances; Z79.899 Other long term (current) drug therapy
CPT/HCPCS: 36415; 71045; 80053; 83880; 84484; 85025; 93005; 99285; Q0092

== ENCOUNTER 2022-06-12 18:03 | Emergency (ER) | payer OTHER ==
[~2022-06-12] VITALS: Ht 170.2 cm; Wt 98.9 kg
[2022-06-12 18:14] VITALS: BP 127/76
--- NOTE | 2022-06-12 18:15 | NUR ---
PT TO BED 12 AMBULATORY
[2022-06-12 18:56] LABS: BASOPHILS % (AUTO) 0.3 % (0.0-2.0); EOSINOPHILS % (AUTO) 0.2 % (0.0-4.0); HEMOGLOBIN 14.2 g/dL (12.0-16.0); LYMPHOCYTES # (AUTO) 0.4 K/uL (2.5-16.5); MEAN CORPUSCULAR HEMOGLOBIN 33 pg (27-31); MEAN CORPUSCULAR HGB CONC 33 g/dL (33-37); MEAN CORPUSCULAR VOLUME 100.4 fL (80-94); MONOCYTES # (AUTO) 0.1 K/uL (0.8-1.0); MONOCYTES % (AUTO) 1.7 % (1.7-9.3); NEUTROPHILS # (AUTO) 6.2 K/uL (1.8-7.7); NEUTROPHILS % (AUTO) 91.8 % (42.2-75.2); PLATELET COUNT (AUTO) 142 K/uL (140-450); RED BLOOD CELL COUNT(AUTO) 4.28 MIL/uL (4.20-5.40); RED CELL DISTRIBUTION WIDTH 13.9 % (11.6-13.7); WHITE BLOOD COUNT (AUTO) 6.8 K/uL (4.8-10.8)
[2022-06-12 19:15] LABS: ALBUMIN 3.3 g/dL (3.4-5.0); ANION GAP 11.1 (8-16); CARBON DIOXIDE 29.6 mmol/L (21-32); CREATININE 1.6 mg/dL (0.6-1.3); POTASSIUM 3.7 mmol/L (3.5-5.1); TOTAL BILIRUBIN 0.4 mg/dL (0.0-1.0)
--- NOTE | 2022-06-12 19:30 | NUR ---
Received in bed 12 with c/o BLOODY STOOLS TODAY. ALONG WITH ABD PAIN, AND DIARRHEA. PMH: CHF, COPD, HTN, a-fib (on blood thinners)
[2022-06-12] MEDS ORDERED: NACL 0.9% 1,000 ML IV ONE (19:50)
[2022-06-12] MEDS ORDERED: MORPHINE SULFATE 4 MG/ML SYR IVP ONE (20:20)
--- NOTE | 2022-06-12 20:45 | NUR ---
medicted as ordered for pain
--- NOTE | 2022-06-12 21:36 | NUR ---
PT TAKEN TO CT
--- NOTE | 2022-06-12 21:49 | NUR ---
PT RETURN FROM CT
[2022-06-12] MEDS ORDERED: ONDA-188 SL (22:28)
[2022-06-12] MEDS ORDERED: CIPR500T4 PO (22:28)
[2022-06-12 22:55] VITALS: BP 93/66
--- NOTE | 2022-06-12 22:55 | NUR ---
Patient discharged with v/s stable. Written and verbal after care instructions given and explained. Patient alert, oriented and verbalized understanding of instructions. Ambulatory with steady gait. All questions addressed prior to discharge. ID band removed. Patient advised to follow up with PMD. Rx of Cipro, and Zofran given. Patient educated on indication of medication including possible reaction and side effects. Opportunity to ask questions provided and answered.
== END 2022-06-12 22:55 | disposition home or self-care (01) ==
LOC: MED 18:03
DX: K57.30 Diverticulosis of large intestine without perforation or abscess without bleeding (principal); N17.9 Acute kidney failure, unspecified; R11.2 Nausea with vomiting, unspecified; E86.0 Dehydration; R19.7 Diarrhea, unspecified; I48.91 Unspecified atrial fibrillation; I11.0 Hypertensive heart disease with heart failure; I50.9 Heart failure, unspecified; J44.9 Chronic obstructive pulmonary disease, unspecified; Z95.0 Presence of cardiac pacemaker; Z87.448 Personal history of other diseases of urinary system; Z79.899 Other long term (current) drug therapy; Z79.2 Long term (current) use of antibiotics; Z79.01 Long term (current) use of anticoagulants; Z88.8 Allergy status to other drugs, medicaments and biological substances
CPT/HCPCS: 36415; 74177; 80053; 83690; 85025; 93005; 96361; 96374; 99285; J2270; J7030; Q9967

== ENCOUNTER 2022-06-24 20:10 | Inpatient (IN) | payer OTHER ==
[~2022-06-24] VITALS: Ht 170.2 cm; Wt 91.6 kg
[~2022-06-24 20:10] MED LIST changes: +CIPR500T4 PO; +ONDA-188 SL
[2022-06-24 20:25] VITALS: BP 145/90
--- NOTE | 2022-06-24 20:25 | NUR ---
LOWER ABD PAIN, N/DFOR 2 DAYS, SOB SINCE YESTERDAY
--- NOTE | 2022-06-24 20:28 | NUR ---
TO LOBBY A/W BED AMBULATORY
[2022-06-24 22:17] LABS: BASOPHILS % (AUTO) 0.1 % (0.0-2.0); EOSINOPHILS % (AUTO) 0.1 % (0.0-4.0); HEMATOCRIT 42.1 % (36-48); HEMOGLOBIN 13.9 g/dL (12.0-16.0); LYMPHOCYTES % (AUTO) 6.2 % (20.5-51.1); MEAN CORPUSCULAR HEMOGLOBIN 33 pg (27-31); MEAN CORPUSCULAR HGB CONC 33 g/dL (33-37); MEAN CORPUSCULAR VOLUME 99.1 fL (80-94); MONOCYTES # (AUTO) 0.7 K/uL (0.8-1.0); MONOCYTES % (AUTO) 4.8 % (1.7-9.3); NEUTROPHILS # (AUTO) 13.7 K/uL (1.8-7.7); NEUTROPHILS % (AUTO) 88.8 % (42.2-75.2); PLATELET COUNT (AUTO) 234 K/uL (140-450); RED BLOOD CELL COUNT(AUTO) 4.24 MIL/uL (4.20-5.40); RED CELL DISTRIBUTION WIDTH 14.1 % (11.6-13.7); WHITE BLOOD COUNT (AUTO) 15.4 K/uL (4.8-10.8)
--- NOTE | 2022-06-24 22:31 | NUR ---
Attempted to collect urine, per pt unable to urinate at this time
[2022-06-24 22:37] LABS: ALBUMIN 3.4 g/dL (3.4-5.0); ANION GAP 11.1 (8-16); ASPARTATE AMINOTRANSFERASE 31 U/L (15-37); CARBON DIOXIDE 29.7 mmol/L (21-32); CHLORIDE 104 mmol/L (98-107); CREATININE 1.7 mg/dL (0.6-1.3); GFR ARICAN-AMERICAN 39 mL/min (>90); GLUCOSE 103 mg/dL (74-106); LIPASE 71 U/L (73-393); POTASSIUM 4.8 mmol/L (3.5-5.1); SODIUM SERUM 140 mmol/L (136-145); TOTAL BILIRUBIN 0.6 mg/dL (0.0-1.0); UREA NITROGEN, BLOOD 36 mg/dL (7-18)
[2022-06-24] MEDS ORDERED: MORPHINE SULFATE 4 MG/ML SYR IVP ONE (22:50)
[2022-06-24] MEDS ORDERED: ONDANSETRON 4 MG/2 ML VIAL IVP ONE (22:50)
[2022-06-24] MEDS ORDERED: ALBUTEROL SULFATE/IPRATROPIU 3 ML SOL IH ONE (22:50)
[2022-06-24] MEDS ORDERED: VANCOMYCIN 1,000 MG in DEXTROSE 5% 250 ML IV ONE (22:50)
[2022-06-24] MEDS ORDERED: PIPERACILLIN/TAZOBACTAM 3.375 GM in DEXTROSE 5% 50 ML IV ONE (22:50)
[2022-06-24] MEDS ORDERED: methylPREDNISolone SS 125 MG/2 ML VIAL IVP ONE (22:50)
[2022-06-24] MEDS ORDERED: PIPERACILLIN/TAZOBACTAM 3.375 GM VIAL IV ONE (23:25)
[2022-06-24] MEDS ORDERED: VANCOMYCIN 1,000 MG VIAL ONE (23:25)
--- NOTE | 2022-06-25 00:01 | NUR ---
Urine collected sent to lab
--- NOTE | 2022-06-25 00:01 | NUR ---
Pt taken to CT
[2022-06-25 00:13] LABS: APPEARANCE,URINE CLEAR (CLEAR); BILIRUBIN,URINE NEGATIVE (NEGATIVE); BLOOD, URINE NEGATIVE (NEGATIVE); COLOR,URINE YELLOW (YELLOW); LEUKOCYTE ESTERASE ,URINE NEGATIVE (NEGATIVE); NITRITE, URINE NEGATIVE (NEGATIVE); UGLUCOSE NEGATIVE (NEGATIVE)
--- NOTE | 2022-06-25 00:14 | NUR ---
SPO2 89% RA PLACED PT ON 2L O2 NC SPO2 96% 2L
[2022-06-25] MEDS ORDERED: FUROSEMIDE 40 MG/4 ML VIAL IVP ONE (00:30)
--- NOTE | 2022-06-25 00:45 | NUR ---
REPEAT TROP 67. DR JIMENEZ AWARE
--- NOTE | 2022-06-25 01:33 | NUR ---
swabs collected sent to lab
[2022-06-25] MEDS ORDERED: ACETAMINOPHEN 325 MG TAB PO PRN (01:35)
[2022-06-25] MEDS ORDERED: ALBUTEROL 0.083% 2.5 MG/3 ML NEBU INH PRN (01:35)
[2022-06-25] MEDS ORDERED: HYDROcodone/APAP 5/325 MG 1 TAB TAB PO PRN (01:35)
[2022-06-25] MEDS ORDERED: LORazepam 2 MG/ML VIAL IVP PRN (01:35)
[2022-06-25] MEDS ORDERED: ONDANSETRON 4 MG/2 ML VIAL IVP PRN (01:35)
[2022-06-25] MEDS ORDERED: ACETAMINOPHEN EXTRA STRENGTH 500 MG TAB PO PRN (01:40)
[2022-06-25] MEDS ORDERED: CYCL-711 PO (02:15)
[2022-06-25] MEDS ORDERED: IBUP-1842 PO (02:15)
[2022-06-25] MEDS ORDERED: LID5T TP (02:15)
[2022-06-25] MEDS ORDERED: ACET-10509 PO (02:15)
[2022-06-25] MEDS ORDERED: BEN10 PO (02:15)
[2022-06-25] MEDS: methylPREDNISolone SS 125 MG/2 ML VIAL IVP SCH ×3 (05:00→20:22)
[2022-06-25] MEDS ORDERED: cefTRIAXone 1,000 MG VIAL ONE (06:05)
[2022-06-25] MEDS ORDERED: AZITHROMYCIN 500 MG INJ VIAL IV ONE (06:05)
[2022-06-25] MEDS: AZITHROMYCIN 500 MG in DEXTROSE 5% 250 ML IV SCH (06:40)
--- NOTE | 2022-06-25 07:30 | NUR ---
RECEIVED PT IN [facility] AOX4. C/O 04/27 ABDOMINAL PAIN, PT ON 2L NC SATURATION 97% SPEAKING IN COMPLETE SENTENCES. AFIB ON MONITOR. PENDING ADMISSION BED. NAD. SAFETY MAINTAINED
--- NOTE | 2022-06-25 07:34 | NUR ---
Iliana alarcon in EDM - 06/25/22 at 0849 by [email or web address] PT BIB AMBULANCE BLS, PT C/O SUDDEN MID-BACK PAIN W/TINGLING ON BILATERAL LEGS AND ARMS SINCE THIS AM. NAD.
--- NOTE | 2022-06-25 08:15 | NUR ---
RECEIEVED PATIENT FROM ED. REPORT GIVEN. PATIENT SEEN. ESTABLISHED RAPPORT WITH PATIENT. ADMISSION INTERVIEW FOR PATIENT STARTED.
--- NOTE | 2022-06-25 08:30 | NUR ---
Patient will be admitted to care of DR TOVAR. Admited to TELEMETRY. Will go to room 125-B. Belongings list completed. Report to ANA TEREZA.
[2022-06-25] MEDS ORDERED: metOLazone 5 MG TAB PO SCH (09:00)
[2022-06-25] MEDS ORDERED: FUROSEMIDE 40 MG/4 ML VIAL IVP SCH (09:00)
[2022-06-25 09:08] LABS: BASOPHILS # (AUTO) 0.1 K/uL (0.00-0.22); BASOPHILS % (AUTO) 0.9 % (0.0-2.0); EOSINOPHILS % (AUTO) 0.3 % (0.0-4.0); HEMATOCRIT 39.4 % (36-48); HEMOGLOBIN 13.1 g/dL (12.0-16.0); LYMPHOCYTES # (AUTO) 0.3 K/uL (2.5-16.5); LYMPHOCYTES % (AUTO) 2.9 % (20.5-51.1); MEAN CORPUSCULAR HEMOGLOBIN 33 pg (27-31); MEAN CORPUSCULAR HGB CONC 33 g/dL (33-37); MONOCYTES % (AUTO) 0.4 % (1.7-9.3); NEUTROPHILS % (AUTO) 95.5 % (42.2-75.2); PLATELET COUNT (AUTO) 222 K/uL (140-450); RED BLOOD CELL COUNT(AUTO) 3.94 MIL/uL (4.20-5.40); RED CELL DISTRIBUTION WIDTH 14.1 % (11.6-13.7); WHITE BLOOD COUNT (AUTO) 10.5 K/uL (4.8-10.8)
--- NOTE | 2022-06-25 09:30 | NUR ---
ECHOCARDIOGRAM PERFORMED ON PATIENT. PATIENT VERBALIZES NO PROBLEMS TO REPORT.
[2022-06-25] MEDS: CLOPIDOGREL 75 MG TAB PO SCH (09:48)
[2022-06-25] MEDS: RIVAROXABAN 10 MG TAB PO SCH (09:52)
--- NOTE | 2022-06-25 10:40 | NUR ---
PATIENT HAS BEEN SCREENED AND CATEGORIZED HIGH NUTRITION RISK. PATIENT WILL BE SEEN WITHIN 1-2 DAYS OF ADMISSION. FNS REFERRAL RECEIVED FOR UNINTENTIONAL WEIGHT LOSS AND DECREASED APPETITE. 06/26/22-06/27/[address]
[2022-06-25 12:00] VITALS: BP 130/91
--- NOTE | 2022-06-25 13:00 | NUR ---
ROUTINE PATIENT ROUNDS DONE. PATIENT SEEN ASLEEP. NORMAL RISE AND FALL OF CHEST.
[2022-06-25 16:00] VITALS: BP 109/74
--- NOTE | 2022-06-25 18:30 | NUR ---
PATIENT VITALS STABLE. PATIENT EATING DINNER MEAL.
--- NOTE | 2022-06-25 18:55 | NUR ---
PATIENT SEEN. PATIENT COMPLETED DINNER. NO PAIN REPORTED BY PATIENT. CLOSING REMARKS EXCHANGED. PREPARING PATIENT FOR ENDORSEMENT TO PM NURSE.
[2022-06-25 20:00] VITALS: BP 134/77
--- NOTE | 2022-06-25 20:06 | NUR ---
1930 PATIENT ON ROOM AIR. SATS 100% NO HHNTX NEEDED AT THIS TIME
[2022-06-25] MEDS: BUMETANIDE 1 MG/4 ML VIAL IV SCH (20:21)
[2022-06-25] MEDS: MORPHINE SULFATE 4 MG/ML SYR IVP PRN (20:23)
--- NOTE | 2022-06-25 20:23 | NUR ---
PT COMPLAINTS OF UPPER ABDOMINAL PAIN 09/27, NOTED FACIAL GRIMACING. PAIN MEDICATION MORPHINE IS ADMINISTERED ORDER.
--- NOTE | 2022-06-25 21:23 | NUR ---
PT ASLEEP. NO FACIAL GRIMACING.
[2022-06-26] VITALS: BP 128/76
--- NOTE | 2022-06-26 01:30 | NUR ---
PT COMPLAINTS OF HAVING NAUSEA, MEDICATION FOR NAUSEA ZOFRAN ADMINISTERED ORDER.
[2022-06-26] MEDS: AZITHROMYCIN 500 MG in DEXTROSE 5% 250 ML IV SCH (01:44)
--- NOTE | 2022-06-26 02:30 | NUR ---
PT VERBALIZED HAVE NO NAUSEA.
[2022-06-26 04:00] VITALS: BP 105/69
[2022-06-26 05:20] LABS: BASOPHILS % (AUTO) 0.1 % (0.0-2.0); HEMOGLOBIN 13.6 g/dL (12.0-16.0); LYMPHOCYTES # (AUTO) 0.3 K/uL (2.5-16.5); LYMPHOCYTES % (AUTO) 2.8 % (20.5-51.1); MEAN CORPUSCULAR HEMOGLOBIN 34 pg (27-31); MEAN CORPUSCULAR HGB CONC 33 g/dL (33-37); MEAN CORPUSCULAR VOLUME 100.9 fL (80-94); MONOCYTES # (AUTO) 0.3 K/uL (0.8-1.0); MONOCYTES % (AUTO) 2.7 % (1.7-9.3); NEUTROPHILS # (AUTO) 9.7 K/uL (1.8-7.7); NEUTROPHILS % (AUTO) 94.4 % (42.2-75.2); PLATELET COUNT (AUTO) 209 K/uL (140-450); RED BLOOD CELL COUNT(AUTO) 4.06 MIL/uL (4.20-5.40); RED CELL DISTRIBUTION WIDTH 13.7 % (11.6-13.7); WHITE BLOOD COUNT (AUTO) 10.3 K/uL (4.8-10.8)
[2022-06-26 05:39] LABS: ALBUMIN 3.2 g/dL (3.4-5.0); ANION GAP 12.7 (8-16); CARBON DIOXIDE 31.4 mmol/L (21-32); CREATININE 1.9 mg/dL (0.6-1.3); MAGNESIUM 1.9 mg/dL (1.8-2.4); POTASSIUM 3.1 mmol/L (3.5-5.1); TOTAL BILIRUBIN 0.4 mg/dL (0.0-1.0)
[2022-06-26] MEDS: BUMETANIDE 1 MG/4 ML VIAL IV SCH (05:46)
[2022-06-26] MEDS: methylPREDNISolone SS 125 MG/2 ML VIAL IVP SCH (05:50)
--- NOTE | 2022-06-26 07:10 | NUR ---
PATIENT RECEIVED FROM PM NURSE FOR CONTINUATION OF CARE. PATIENT SEEN ON BED ASLEEP WITH NORMAL RISE AND FALL OF CHEST.
[2022-06-26 08:00] VITALS: BP 132/85
[2022-06-26] MEDS ORDERED: METOPROLOL SUCCINATE 50 MG TABER PO SCH (09:00)
[2022-06-26] MEDS ORDERED: hydrALAZINE 10 MG TAB PO SCH (09:00)
[2022-06-26] MEDS ORDERED: metOLazone 5 MG TAB PO SCH (09:00)
[2022-06-26] MEDS ORDERED: ATORVASTATIN 80 MG TAB PO SCH (09:00)
[2022-06-26] MEDS: RIVAROXABAN 10 MG TAB PO SCH (09:00)
[2022-06-26] MEDS ORDERED: ISOSORBIDE DINITRATE 10 MG TAB PO SCH (09:00)
[2022-06-26] MEDS ORDERED: SPIRONOLACTONE 25 MG TAB PO SCH (09:00)
[2022-06-26] MEDS ORDERED: METO5TAB9 PO (09:06)
[2022-06-26] MEDS ORDERED: ISOS10TA9 PO (09:06)
[2022-06-26] MEDS ORDERED: APR10 PO (09:06)
[2022-06-26] MEDS ORDERED: BUME1TAB92 PO (09:06)
[2022-06-26] MEDS ORDERED: METO50TE2 PO (09:06)
[2022-06-26] MEDS ORDERED: SPIR25TA PO (09:06)
[2022-06-26] MEDS ORDERED: LIP80 PO (09:06)
[2022-06-26] MEDS: MORPHINE SULFATE 4 MG/ML SYR IVP PRN (09:09)
[2022-06-26] MEDS: CLOPIDOGREL 75 MG TAB PO SCH (09:53)
--- NOTE | 2022-06-26 09:56 | NUR ---
MORPHINE GIVEN AT 0830 FOOR 8/10 PAIN. PAIN SCORE REEVALUATED TO 10
[2022-06-26 11:06] VITALS: BP 132/85
[2022-06-26 12:41] VITALS: BP 132/85
--- NOTE | 2022-07-02 13:31 | NUR ---
CALLED DR CARLIE MATA OFFICE LOCATED AT [address] [facility] [id number] SPOKE WITH GARY WHO HELPED ME SCHEDULAR AN APPOINTMENT TO 07/04/2022 AT 1100. CALLED PATIENT AND WAS ABLE TO LEAVE A MESSAGE REGARDING THE ABOVE INFORMATION. GARY DID WARN ME THAT PATIENT IS NOT VERY COMPLIANT WITH APPOINTMENTS.
== END 2022-06-26 13:55 | disposition home or self-care (01) | DRG 194 ==
LOC: MED 20:10 → MTU 06-25 01:55 → MMU 06-25 02:07
PROVIDERS: ADMIT Internal Medicine; ATTEND Internal Medicine
DX: I13.0 Hypertensive heart and chronic kidney disease with heart failure and stage 1 through stage 4 chronic kidney disease, or unspecified chronic kidney disease (principal); J96.01 Acute respiratory failure with hypoxia; I21.4 Non-ST elevation (NSTEMI) myocardial infarction; E44.0 Moderate protein-calorie malnutrition; R65.10 Systemic inflammatory response syndrome (SIRS) of non-infectious origin without acute organ dysfunction; I42.0 Dilated cardiomyopathy; I50.23 Acute on chronic systolic (congestive) heart failure; I48.0 Paroxysmal atrial fibrillation; I48.91 Unspecified atrial fibrillation; N18.9 Chronic kidney disease, unspecified; J44.9 Chronic obstructive pulmonary disease, unspecified; G47.33 Obstructive sleep apnea (adult) (pediatric); Z20.822 Contact with and (suspected) exposure to COVID-19; E78.00 Pure hypercholesterolemia, unspecified; I25.2 Old myocardial infarction; I25.10 Atherosclerotic heart disease of native coronary artery without angina pectoris; Z86.73 Personal history of transient ischemic attack (TIA), and cerebral infarction without residual deficits; Z88.8 Allergy status to other drugs, medicaments and biological substances; Z87.891 Personal history of nicotine dependence; Z95.0 Presence of cardiac pacemaker; Z68.31 Body mass index [BMI] 31.0-31.9, adult
CPT/HCPCS: 36415; 71045; 80053; 81003; 83605; 83690; 83735; 83880; 84484; 85025; 87040; 87081; 94640; 96365; 96367; 96375; 99285; J0456; J0696; J1940; J2270; J2405; J2543; J2930; J3370; J3490; J7060; J7613

== ENCOUNTER 2022-07-03 09:32 | Observation (INO) | payer OTHER ==
[~2022-07-03] VITALS: Ht 172.7 cm; Wt 87.1 kg
[~2022-07-03 09:32] MED LIST changes: +APR10 PO; -AZIT250T4 PO; -CIPR500T4 PO; +ISOS10TA9 PO; +LIP80 PO; +METO50TE2 PO; +METO5TAB9 PO; -ONDA-188 SL; -PRED20TA5 PO; -SODI10PO PO; +SPIR25TA PO; -ZAR2.5 PO
[2022-07-03 09:35] VITALS: BP 127/57
[2022-07-03] MEDS ORDERED: MAG SULF 2000 MG/WATER PREMIX 50 ML IV ONE (09:40)
[2022-07-03] MEDS ORDERED: methylPREDNISolone SS 125 MG/2 ML VIAL IVP ONE (09:40)
[2022-07-03] MEDS ORDERED: ALBUTEROL SULFATE/IPRATROPIU 3 ML SOL IH ONE (09:40)
[2022-07-03] MEDS ORDERED: MORPHINE SULFATE 4 MG/ML SYR IVP ONE ×2 (09:50→11:35)
--- NOTE | 2022-07-03 10:07 | NUR ---
66 yo/f biba from home to ED w c/o R lower rib pain radiating to R back sharp int since 729 today 10/10 worse when breathing deep. denies any chest pain, sob, fevers, chills, n/v/d. pmh: chf, htn, diverticulitis, high cholesterol, angio edema allergies: jesus inhibitors, rifampin
--- NOTE | 2022-07-03 10:10 | NUR ---
pt was given approx 500 mg tylenol iv cognos analyst w/o relief.
[2022-07-03 10:26] LABS: BASOPHILS % (AUTO) 0.6 % (0.0-2.0); EOSINOPHILS # (AUTO) 0.1 K/uL (0-0.4); EOSINOPHILS % (AUTO) 1.5 % (0.0-4.0); HEMATOCRIT 41.9 % (36-48); HEMOGLOBIN 14.1 g/dL (12.0-16.0); LYMPHOCYTES # (AUTO) 1.1 K/uL (2.5-16.5); LYMPHOCYTES % (AUTO) 13.2 % (20.5-51.1); MEAN CORPUSCULAR HEMOGLOBIN 33 pg (27-31); MEAN CORPUSCULAR HGB CONC 34 g/dL (33-37); MEAN CORPUSCULAR VOLUME 98.3 fL (80-94); MONOCYTES # (AUTO) 1.1 K/uL (0.8-1.0); MONOCYTES % (AUTO) 13.3 % (1.7-9.3); NEUTROPHILS # (AUTO) 6.1 K/uL (1.8-7.7); NEUTROPHILS % (AUTO) 71.4 % (42.2-75.2); PLATELET COUNT (AUTO) 185 K/uL (140-450); RED BLOOD CELL COUNT(AUTO) 4.27 MIL/uL (4.20-5.40); RED CELL DISTRIBUTION WIDTH 14.1 % (11.6-13.7); WHITE BLOOD COUNT (AUTO) 8.5 K/uL (4.8-10.8)
--- NOTE | 2022-07-03 10:31 | NUR ---
covid swab collected and sent to lab.
[2022-07-03] MEDS ORDERED: [UNRECOGNIZED DRUG - CODE] PO (10:54)
[2022-07-03 11:17] LABS: APPEARANCE,URINE CLEAR (CLEAR); BILIRUBIN,URINE NEGATIVE (NEGATIVE); BLOOD, URINE NEGATIVE (NEGATIVE); COLOR,URINE YELLOW (YELLOW); LEUKOCYTE ESTERASE ,URINE 1+ (NEGATIVE); NITRITE, URINE NEGATIVE (NEGATIVE); PH,URINE 5.5 (5.0-9.0); UGLUCOSE NEGATIVE (NEGATIVE)
--- NOTE | 2022-07-03 11:27 | NUR ---
PT RETURN FROM CT
[2022-07-03 11:29] LABS: ANION GAP 10.7 (8-16); CARBON DIOXIDE 32.8 mmol/L (21-32); CREATININE 1.3 mg/dL (0.6-1.3); POTASSIUM 3.5 mmol/L (3.5-5.1)
[2022-07-03] MEDS ORDERED: POTASSIUM CHLORIDE 10 MEQ TABER PO PRN (14:45)
[2022-07-03] MEDS ORDERED: MAGNESIUM OXIDE 400 MG TAB PO PRN (14:45)
[2022-07-03] MEDS ORDERED: HYDROcodone/APAP 5/325 MG 1 TAB TAB PO PRN (14:45)
[2022-07-03] MEDS ORDERED: KCL 20 MEQ IN 100 mL PREMIX 200 ML IV PRN (14:45)
[2022-07-03] MEDS ORDERED: MAG SULF 2000 MG/WATER PREMIX 50 ML IV PRN (14:45)
[2022-07-03] MEDS ORDERED: ACETAMINOPHEN 325 MG TAB PO PRN (14:45)
--- NOTE | 2022-07-03 16:49 | NUR ---
spoke w md yañez regarding pt requesting meds for gerd and constipation per md yañez he will put in orders. also verified pt had ct done earlier w/o contrast md yañez still wants ordered ct w contrast as soon as available.
--- NOTE | 2022-07-03 16:51 | NUR ---
pt to ct.
[2022-07-03] MEDS: MORPHINE SULFATE 2 MG/ML SYR IVP PRN ×2 (17:13→21:23)
--- NOTE | 2022-07-03 17:40 | NUR ---
PT BROUGHT IN FROM ED IN STABLE CONDITION, ABLE TO AMBULATE TO BED WITH STEADY GAIT. ROOM AIR WITH CHEST RISING AND FALLING AND UNLABORED. RIGHT WRIST 20 GAUGE, PATENT AND INTACT. AAOX4, SKIN INTACT, PT HAS SOME BRUISES ON ARMS, PT STATED DUE TO BLOOD THINNER SHE TAKES AT HOME. LUNGS CLEAR, ACTIVE BOWEL SOUNDS.
--- NOTE | 2022-07-03 17:44 | NUR ---
Patient will be admitted to care of dr. yañez. Admited to [facility]. Will go to [id number]. Belongings list completed. Report to ramos hernandez bedside report at this time, tx at this time [id number].
[2022-07-03 18:12] VITALS: BP 126/68
--- NOTE | 2022-07-03 20:00 | NUR ---
RECEIVED PT FROM DAY NURSE FOR CONTINUITY OF CARE. PT IS STABLE. PT AWAKE ,ALERT AND ORIENTED X4, ON ROOM AIR.COMPLAINS OF CONSTIPATION.POC DISCUSSED. ALL PRECAUTIONS IN PLACE. CALL LIGHT WITHIN REACH. WILL CONTINUE TO MONITOR.
--- NOTE | 2022-07-03 21:15 | NUR ---
PRN PAIN MEDICATION GIVEN. WILL CONTINUE TO MONITOR.
--- NOTE | 2022-07-03 22:00 | NUR ---
GOT A CALL FROM AND WAS TOLD THAT PATIENT CAN EAT FOR NOW AND PUT PATIENT ON NPO AFTER MIDNIGHT. Addendum: 07/03/22 at 6573 by Ollie Martinez RN ERROR. WRONG PATIENT.
[2022-07-04 04:00] VITALS: BP 125/72
--- NOTE | 2022-07-04 06:29 | NUR ---
PT IS STABLE. NO ACUTE EVENT THROUGHOUT THE NIGHT. NO S/SX OF DISTRESS AT THIS MOMENT. NO COMPLAINS OF PAIN. ALL NEEDS MET.ALL PRECAUTIONS IN PLACE. CALL LIGHT WITHIN REACH. WILL ENDORSE TO DAY SHIFT NURSE.
[2022-07-04 06:46] LABS: BASOPHILS % (AUTO) 0.1 % (0.0-2.0); HEMATOCRIT 39.7 % (36-48); HEMOGLOBIN 13.2 g/dL (12.0-16.0); LYMPHOCYTES # (AUTO) 0.5 K/uL (2.5-16.5); LYMPHOCYTES % (AUTO) 3.6 % (20.5-51.1); MEAN CORPUSCULAR HEMOGLOBIN 33 pg (27-31); MEAN CORPUSCULAR HGB CONC 33 g/dL (33-37); MEAN CORPUSCULAR VOLUME 99.1 fL (80-94); MONOCYTES # (AUTO) 0.7 K/uL (0.8-1.0); MONOCYTES % (AUTO) 4.7 % (1.7-9.3); NEUTROPHILS % (AUTO) 91.6 % (42.2-75.2); PLATELET COUNT (AUTO) 171 K/uL (140-450); RED BLOOD CELL COUNT(AUTO) 4.01 MIL/uL (4.20-5.40); RED CELL DISTRIBUTION WIDTH 14.3 % (11.6-13.7); WHITE BLOOD COUNT (AUTO) 14.1 K/uL (4.8-10.8)
[2022-07-04 07:12] LABS: ALBUMIN 2.8 g/dL (3.4-5.0); CARBON DIOXIDE 33.2 mmol/L (21-32); CREATININE 1.2 mg/dL (0.6-1.3); MAGNESIUM 2.1 mg/dL (1.8-2.4); POTASSIUM 3.2 mmol/L (3.5-5.1); TOTAL BILIRUBIN 0.6 mg/dL (0.0-1.0)
--- NOTE | 2022-07-04 07:13 | NUR ---
RECEIVED REPORT FROM PROFESSOR OF BIOLOGICAL SCIENCES NURSE, ALFREDO, FOR CONTINUITY OF CARE. PT IN BED WATCHING TELEVISION AT THIS TIME. RESPIRATIONS ARE EVEN AND UNLABORED ON ROOM AIR. NO SIGNS OF DISTRESS NOTED. PT IS ALERT AND ORIENTED X4, ABLE TO VERBALIZE NEEDS, ABLE TO FOLLOW COMMANDS. PT IS ON CARDIAC DIET, TOLERATING WELL. LAST BOWEL MOVEMENT WAS 07/03/22. PT CONTINENT OF BOWEL AND BLADDER. PT HAS IV TO L HAND 22G, SALINE LOCKED. SKIN IS WARM, DRY, AND INTACT. CALL LIGHT WITHIN REACH. ALL SAFETY MEASURES IN PLACE.
[2022-07-04 08:00] VITALS: BP 120/80
--- NOTE | 2022-07-04 08:23 | NUR ---
PT COMPLAINING OF GAS PAIN. STATES SHE "FEELS BLOATED AND LIKE I HAVE A LOT OF GAS". DR SHELTON MADE AWARE. NEW ORDERS PLACED.
[2022-07-04] MEDS ORDERED: SIMETHICONE 80 MG TAB.CHEW PO PRN (08:35)
--- NOTE | 2022-07-04 08:44 | NUR ---
ADMINISTERED ALL SCHEDULED MEDICATIONS. EDUCATED PT ON MEDS ADMINISTERED. PT VERBALIZED UNDERSTANDING OF ALL INFORMATION PROVIDED.
[2022-07-04] MEDS ORDERED: DOCUSATE SODIUM 100 MG GELCAP PO SCH (09:00)
[2022-07-04] MEDS ORDERED: ENOXAPARIN 40 MG/0.4 ML SYR SUBQ SCH (09:00)
--- NOTE | 2022-07-04 09:15 | NUR ---
PATIENT HAS BEEN SCREENED AND CATEGORIZED MODERATE NUTRITION RISK. PATIENT WILL BE SEEN WITHIN 3-5 DAYS OF ADMISSION. REVIEWED BY DON SANTACRUZ RD
--- NOTE | 2022-07-04 10:40 | NUR ---
DID ROUNDS ON PT. PT IN BED SITTING UP DRINKING SODA. NO COMPLAINTS OF PAIN OR DISCOMFORT.
--- NOTE | 2022-07-04 11:06 | NUR ---
DC PLANNIN YRS OLD FEMALE PATIENT WAS ADMITTED FROM HOME WITH A DX OF ABDOMINAL PATIENT HAS A HX OF CAD, HTN, S/P STENT PLACEMENT AND COPD. CXR SHOWED CARDIOMEGALY AND PULMONARY VASCULAR CONGESTION. CT ABD SHOWED CHOLELITHIASIS EARLY ACUTE PYELONEPHRITIS. ADMINISTERED IVF, IV MORPHINE FOR PAIN. DC PLAN TO GO HOME WHEN STABLE. CM TO FOLLOW
--- NOTE | 2022-07-04 14:30 | NUR ---
PT CALLED, FRUSTRATED ASKING WHEN SHE IS GOING TO BE DISCHARGED. PT STATING THAT IF SHE IS NOT DC SOON, SHE WILL AMA. DR SHELTON MADE AWARE.
[2022-07-04] MEDS ORDERED: DOCU-299 PO (14:39)
[2022-07-04] MEDS ORDERED: SIME80TA34 PO (14:39)
[2022-07-04] MEDS ORDERED: CIPR500T4 PO (14:39)
[2022-07-04 14:43] VITALS: BP 120/80
--- NOTE | 2022-07-04 15:23 | NUR ---
WENT OVER DISCHARGE PAPERWORK WITH PT. ANSWERED ALL QUESTIONS. PT SIGNED ALL PAPERWORK. REMOVED IV. IV CATHETER INTACT. ALL BELONGINGS TAKEN UPON DISCHARGE.
== END 2022-07-04 15:20 | disposition home or self-care (01) ==
LOC: MED 09:32 → MTU 14:46
PROVIDERS: ADMIT Internal Medicine; ATTEND Internal Medicine
DX: R10.9 Unspecified abdominal pain (principal); Z20.822 Contact with and (suspected) exposure to COVID-19; J44.9 Chronic obstructive pulmonary disease, unspecified; I11.0 Hypertensive heart disease with heart failure; I50.30 Unspecified diastolic (congestive) heart failure; I25.10 Atherosclerotic heart disease of native coronary artery without angina pectoris; K76.9 Liver disease, unspecified; I27.20 Pulmonary hypertension, unspecified; Z79.899 Other long term (current) drug therapy
CPT/HCPCS: 36415; 36600; 71045; 71250; 74176; 74177; 80053; 81003; 82803; 83605; 83735; 85025; 87040; 87081; 87086; 87426; 93005; 96365; 96366; 96372; 96375; 96376; 99285; G0378; J1650; J2270; J2930; J3475; Q0092; Q9967

== ENCOUNTER 2022-08-17 19:38 | Observation (INO) | payer OTHER ==
[~2022-08-17] VITALS: Ht 170.2 cm; Wt 89.5 kg
[~2022-08-17 19:38] MED LIST changes: -APR10 PO; +CIPR500T4 PO; +DOCU-299 PO; -ISOS10TA9 PO; +SIME80TA34 PO; +[UNRECOGNIZED DRUG - CODE] PO
[2022-08-17 19:43] VITALS: BP 130/116; PULSE 79; RESP 20; TEMP 97; O2SAT 95
--- NOTE | 2022-08-17 19:53 | NUR ---
TO BED 10 FOLLOWING TRIAGE
--- NOTE | 2022-08-17 20:00 | NUR ---
ERMD by bedside
[2022-08-17] MEDS ORDERED: ONDANSETRON 4 MG/2 ML VIAL IVP ONE (20:05)
[2022-08-17] MEDS ORDERED: MORPHINE SULFATE 4 MG/ML SYR IVP ONE (20:05)
[2022-08-17] MEDS ORDERED: ALBUTEROL SULFATE/IPRATROPIU 3 ML SOL IH ONE (20:05)
--- NOTE | 2022-08-17 20:05 | NUR ---
DUONEB WAS NOT ADMINISTERED PER DOCTOR'S ORDER
--- NOTE | 2022-08-17 20:15 | NUR ---
Ultrasound by bedside at this time
[2022-08-17 20:31] LABS: BASOPHILS # (AUTO) 0.1 K/uL (0.00-0.22); BASOPHILS % (AUTO) 0.9 % (0.0-2.0); EOSINOPHILS # (AUTO) 0.2 K/uL (0-0.4); HEMATOCRIT 40.4 % (36-48); HEMOGLOBIN 13.2 g/dL (12.0-16.0); LYMPHOCYTES # (AUTO) 1.2 K/uL (2.5-16.5); LYMPHOCYTES % (AUTO) 20.3 % (20.5-51.1); MEAN CORPUSCULAR HEMOGLOBIN 32 pg (27-31); MEAN CORPUSCULAR HGB CONC 33 g/dL (33-37); MEAN CORPUSCULAR VOLUME 98.8 fL (80-94); MONOCYTES # (AUTO) 0.5 K/uL (0.8-1.0); MONOCYTES % (AUTO) 8.4 % (1.7-9.3); NEUTROPHILS % (AUTO) 66.4 % (42.2-75.2); PLATELET COUNT (AUTO) 200 K/uL (140-450); RED BLOOD CELL COUNT(AUTO) 4.09 MIL/uL (4.20-5.40); RED CELL DISTRIBUTION WIDTH 14.2 % (11.6-13.7)
--- NOTE | 2022-08-17 20:40 | NUR ---
PT. TRANSFERED ON BED 9. ON MONITOR
[2022-08-17 20:42] LABS: PROTHROMBIN TIME 11.7 secs (10.8-13.4)
[2022-08-17 20:49] LABS: ALBUMIN 3.2 g/dL (3.4-5.0); ANION GAP 10.6 (8-16); CREATININE 1.6 mg/dL (0.6-1.3); POTASSIUM 4.6 mmol/L (3.5-5.1); TOTAL BILIRUBIN 0.4 mg/dL (0.0-1.0)
[2022-08-17 20:54] LABS: LIPASE 124 U/L (73-393)
[2022-08-17] MEDS ORDERED: FUROSEMIDE 40 MG/4 ML VIAL IVP ONE (21:20)
[2022-08-17] MEDS ORDERED: ASPIRIN 81 MG TAB.CHEW PO ONE (21:20)
[2022-08-17 21:38] VITALS: O2SAT 92
--- NOTE | 2022-08-17 22:41 | NUR ---
pt. resting on bed. A/Ox4. not in distress. on monitor.
[2022-08-17] MEDS ORDERED: HYDROcodone/APAP 5/325 MG 1 TAB TAB PO PRN (22:50)
[2022-08-17] MEDS ORDERED: LORazepam 1 MG TAB PO PRN (22:50)
[2022-08-17] MEDS ORDERED: ONDANSETRON 4 MG/2 ML VIAL IVP PRN (22:50)
[2022-08-17] MEDS ORDERED: ZOLPIDEM 5 MG TAB PO PRN (22:50)
[2022-08-17] MEDS ORDERED: ACETAMINOPHEN 325 MG TAB PO PRN (22:50)
[2022-08-17] MEDS: BUMETANIDE 1 MG/4 ML VIAL IV SCH (23:49)
--- NOTE | 2022-08-18 00:55 | NUR ---
Patient resting in bed, A/Ox4, chest rise and fall symmetrical, no c/o pain or s/s of distress, on monitor,
--- NOTE | 2022-08-18 03:25 | NUR ---
Patient resting in bed, A/Ox4, chest rise and fall symmetrical, no c/o pain or s/s of distress, on monitor,
[2022-08-18 05:28] LABS: BASOPHILS # (AUTO) 0.1 K/uL (0.00-0.22); BASOPHILS % (AUTO) 1.1 % (0.0-2.0); EOSINOPHILS # (AUTO) 0.3 K/uL (0-0.4); HEMOGLOBIN 12.9 g/dL (12.0-16.0); LYMPHOCYTES # (AUTO) 0.9 K/uL (2.5-16.5); LYMPHOCYTES % (AUTO) 18.3 % (20.5-51.1); MEAN CORPUSCULAR HEMOGLOBIN 32 pg (27-31); MEAN CORPUSCULAR HGB CONC 33 g/dL (33-37); MEAN CORPUSCULAR VOLUME 97.4 fL (80-94); MONOCYTES # (AUTO) 0.4 K/uL (0.8-1.0); MONOCYTES % (AUTO) 8.3 % (1.7-9.3); NEUTROPHILS # (AUTO) 3.4 K/uL (1.8-7.7); NEUTROPHILS % (AUTO) 67.3 % (42.2-75.2); PLATELET COUNT (AUTO) 185 K/uL (140-450); RED BLOOD CELL COUNT(AUTO) 4.01 MIL/uL (4.20-5.40); RED CELL DISTRIBUTION WIDTH 13.9 % (11.6-13.7); WHITE BLOOD COUNT (AUTO) 5.1 K/uL (4.8-10.8)
[2022-08-18 05:50] LABS: ALBUMIN 2.9 g/dL (3.4-5.0); ANION GAP 13.3 (8-16); CARBON DIOXIDE 27.6 mmol/L (21-32); CREATININE 1.6 mg/dL (0.6-1.3); POTASSIUM 3.9 mmol/L (3.5-5.1); TOTAL BILIRUBIN 0.6 mg/dL (0.0-1.0)
--- NOTE | 2022-08-18 07:33 | NUR ---
Pt report given to BUZZ. Transfer of care at this time.
--- NOTE | 2022-08-18 07:45 | NUR ---
ASSUMED CARE, PT LAYING IN BED, IN NAD. RESP EVEN AND UNLABORED, ON RA @97%.VSS, PT DENIES ANY PAIN AT THIS TIME. PT INFORMED OF PLAN OF CARE, VERBALIZED UNDERSTANDING. WAITING FOR ADMISSION BED. SAFTEY PRECAUTIONS IN PLACE, WILL CONT TO MONITOR.
--- NOTE | 2022-08-18 07:55 | NUR ---
REPORT GIVEN TO NICHOLAS, UPDATED ON [facility], LABS AND VITALS. PT STABLE FOR TRANSFER.
[2022-08-18] MEDS ORDERED: CLOPIDOGREL 75 MG TAB PO SCH (09:00)
[2022-08-18] MEDS ORDERED: RIVAROXABAN 10 MG TAB PO SCH (09:00)
[2022-08-18] MEDS ORDERED: DOCUSATE SODIUM 100 MG GELCAP PO SCH (09:00)
[2022-08-18] MEDS ORDERED: METOPROLOL SUCCINATE 50 MG TABER PO SCH (09:00)
--- NOTE | 2022-08-18 09:06 | NUR ---
ADMITTED FROM ER VIA [facility]. A & O X4. SPEECH CLEAR. NO C/O PAIN. NO SOB, NOTED. SKIN WARM, DRY AND INTACT. KEEP COMFORTABLE ON BED. ADMISSION PROCESS INITIATED. EXPLAINED USE OF CALL LIGHT/BED/TV/BATHROOM. VERBALIZED UNDERSTANDING. CALL LIGHT WITHIN REACH.
[2022-08-18 09:10] VITALS: RESP 16; O2SAT 97
[2022-08-18 09:15] VITALS: BP 117/84; PULSE 65; RESP 18; TEMP 98.5; O2SAT 92
--- NOTE | 2022-08-18 09:34 | NUR ---
Patient will be admitted to care of . Admited to TELE. Will go to room 119B. Belongings list completed. Report to NICHOLAS.
[2022-08-18] MEDS: hydrALAZINE 10 MG TAB PO SCH ×2 (09:40→12:48)
[2022-08-18] MEDS: BUMETANIDE 1 MG/4 ML VIAL IV SCH (09:46)
[2022-08-18 12:00] VITALS: BP 118/73; PULSE 67; PULSE 68; RESP 18; TEMP 97.5; O2SAT 98
--- NOTE | 2022-08-18 13:15 | NUR ---
DR. MUNIZ CAME AND SPOKE TO PT. AT BEDSIDE REGARDING DISCHARGE.
[2022-08-18] MEDS ORDERED: PRED20TA5 PO (13:22)
[2022-08-18] MEDS ORDERED: NICO1PAT TP (13:25)
--- NOTE | 2022-08-18 13:29 | NUR ---
PATIENT HAS BEEN SCREENED AND CATEGORIZED MODERATE NUTRITION RISK. PATIENT WILL BE SEEN WITHIN 3-5 DAYS OF ADMISSION. DON SANTACRUZ RD
[2022-08-18 13:45] VITALS: O2SAT 98
--- NOTE | 2022-08-18 15:15 | NUR ---
D/C HOME VIA WHEELCHAIR. NO C/O PAIN. NO SOB, NOTED. IN TSABLE CONDITION. INFORMED CHARGE NURSE ANDREAS -TEREZA AND [employer] -JUAN. [employer]SPORT PROVIDED.
== END 2022-08-18 15:20 | disposition home or self-care (01) ==
LOC: MED 19:38 → MTU 23:02 → INTOOBSV 23:02 → MTU 08-18 06:24
PROVIDERS: ADMIT Hospitalist; ATTEND Hospitalist
DX: J96.20 Acute and chronic respiratory failure, unspecified whether with hypoxia or hypercapnia (principal); J44.9 Chronic obstructive pulmonary disease, unspecified; I11.0 Hypertensive heart disease with heart failure; I50.40 Unspecified combined systolic (congestive) and diastolic (congestive) heart failure; E78.5 Hyperlipidemia, unspecified; I48.91 Unspecified atrial fibrillation; I25.10 Atherosclerotic heart disease of native coronary artery without angina pectoris; F17.200 Nicotine dependence, unspecified, uncomplicated; Z79.899 Other long term (current) drug therapy
CPT/HCPCS: 36415; 71045; 76705; 80053; 83690; 83735; 83880; 84484; 85025; 85610; 85730; 87081; 93005; 94760; 96374; 96375; 96376; 99285; G0378; J1940; J2270; J2405; J3490; Q0092

== ENCOUNTER 2022-09-18 09:09 | Inpatient (IN) | payer OTHER ==
[2022-09-18] VITALS (7 sets, daily range): BP systolic 119–151; BP diastolic 79–84; PULSE 63–101; RESP 17–20; TEMP 97.6–98.9; O2SAT 91–99
[~2022-09-18] VITALS: Ht 170.2 cm; Wt 87.5 kg
[~2022-09-18 09:09] MED LIST changes: -CIPR500T4 PO; -LIP80 PO; -METO5TAB9 PO; +NICO1PAT TP; +PRED20TA5 PO; -[UNRECOGNIZED DRUG - CODE] PO
[2022-09-18] MEDS ORDERED: KETOROLAC 15 MG/ML VIAL IVP ONE (09:55)
[2022-09-18] MEDS ORDERED: ONDANSETRON 4 MG/2 ML VIAL IVP ONE ×2 (09:55→12:40)
[2022-09-18] MEDS ORDERED: ONDANSETRON 4 MG/2 ML VIAL ONE (11:05)
[2022-09-18] MEDS ORDERED: KETOROLAC 15 MG/ML VIAL ONE (11:06)
[2022-09-18 11:10] LABS: BASOPHILS % (AUTO) 0.7 % (0.0-2.0); EOSINOPHILS # (AUTO) 0.2 K/uL (0-0.4); EOSINOPHILS % (AUTO) 2.6 % (0.0-4.0); HEMATOCRIT 40.8 % (36-48); HEMOGLOBIN 13.4 g/dL (12.0-16.0); LYMPHOCYTES % (AUTO) 17.6 % (20.5-51.1); MEAN CORPUSCULAR HEMOGLOBIN 32 pg (27-31); MEAN CORPUSCULAR HGB CONC 33 g/dL (33-37); MEAN CORPUSCULAR VOLUME 99.1 fL (80-94); MONOCYTES # (AUTO) 0.8 K/uL (0.8-1.0); MONOCYTES % (AUTO) 13.2 % (1.7-9.3); NEUTROPHILS # (AUTO) 3.9 K/uL (1.8-7.7); NEUTROPHILS % (AUTO) 65.9 % (42.2-75.2); PLATELET COUNT (AUTO) 222 K/uL (140-450); RED BLOOD CELL COUNT(AUTO) 4.12 MIL/uL (4.20-5.40); RED CELL DISTRIBUTION WIDTH 15.2 % (11.6-13.7); WHITE BLOOD COUNT (AUTO) 5.9 K/uL (4.8-10.8)
[2022-09-18 11:15] LABS: ALANINE AMINOTRANSFERASE 12 U/L (12-78); ALBUMIN 3.3 g/dL (3.4-5.0); ALKALINE PHOSPHATASE 115 U/L (50-136); ANION GAP 13.5 (8-16); ASPARTATE AMINOTRANSFERASE 15 U/L (15-37); CALCIUM 8.8 mg/dL (8.5-10.1); CARBON DIOXIDE 26.4 mmol/L (21-32); CHLORIDE 105 mmol/L (98-107); CREATININE 1.5 mg/dL (0.6-1.3); GFR ARICAN-AMERICAN 45 mL/min (>90); GFR NON ARICAN-AMERICAN 37 mL/min (>90); GLUCOSE 98 mg/dL (74-106); LIPASE 78 U/L (73-393); POTASSIUM 3.9 mmol/L (3.5-5.1); SODIUM SERUM 141 mmol/L (136-145); TOTAL BILIRUBIN 0.7 mg/dL (0.0-1.0); TOTAL PROTEIN, SERUM 7.5 g/dL (6.4-8.2); UREA NITROGEN, BLOOD 22 mg/dL (7-18)
[2022-09-18 12:17] LABS: APPEARANCE,URINE CLEAR (CLEAR); BILIRUBIN,URINE 1+ (NEGATIVE); BLOOD, URINE NEGATIVE (NEGATIVE); COLOR,URINE YELLOW (YELLOW); LEUKOCYTE ESTERASE ,URINE NEGATIVE (NEGATIVE); NITRITE, URINE NEGATIVE (NEGATIVE); PROTEIN,URINE NEGATIVE (NEGATIVE); UGLUCOSE NEGATIVE (NEGATIVE); UROBILINOGEN,URINE 0.2 EU/dL (0.2 - 1)
[2022-09-18 12:28] LABS: ICTOTEST POSITIVE (NEGATIVE)
[2022-09-18] MEDS ORDERED: MORPHINE SULFATE 4 MG/ML SYR IVP ONE (12:40)
[2022-09-18] MEDS ORDERED: MORPHINE SULFATE 2 MG/ML SYR IVP PRN (13:25)
[2022-09-18] MEDS ORDERED: MORPHINE SULFATE 4 MG/ML SYR IVP PRN (13:25)
[2022-09-18 13:28] LABS: LACTIC ACID 1.3 mmol/L (0.4-2.0)
[2022-09-18] MEDS ORDERED: ceFAZolin 1,000 MG VIAL ONE (13:31)
[2022-09-18] MEDS: MORPHINE SULFATE 4 MG/ML SYR IVP PRN ×2 (15:19→21:11)
[2022-09-18] MEDS ORDERED: SIMETHICONE 80 MG TAB.CHEW PO PRN (15:35)
[2022-09-18] MEDS ORDERED: POTASSIUM CHLORIDE 10 MEQ TABER PO PRN (15:35)
[2022-09-18] MEDS ORDERED: MAG SULF 2000 MG/WATER PREMIX 50 ML IV PRN (15:35)
[2022-09-18] MEDS: hydrALAZINE 10 MG TAB PO SCH (21:07)
[2022-09-19] MEDS ORDERED: ONDANSETRON 4 MG/2 ML VIAL IVP PRN (00:40)
[2022-09-19] MEDS: MORPHINE SULFATE 4 MG/ML SYR IVP PRN ×3 (01:41→13:30)
[2022-09-19 04:00] VITALS: BP 108/63; PULSE 79; RESP 18; TEMP 98; O2SAT 92
[2022-09-19 06:52] LABS: ANION GAP 15.2 (8-16); CALCIUM 8.4 mg/dL (8.5-10.1); CARBON DIOXIDE 26.7 mmol/L (21-32); CREATININE 1.6 mg/dL (0.6-1.3); POTASSIUM 3.9 mmol/L (3.5-5.1)
[2022-09-19 06:55] LABS: BASOPHILS % (AUTO) 0.4 % (0.0-2.0); EOSINOPHILS # (AUTO) 0.1 K/uL (0-0.4); EOSINOPHILS % (AUTO) 2.6 % (0.0-4.0); HEMATOCRIT 37.1 % (36-48); HEMOGLOBIN 12.2 g/dL (12.0-16.0); LYMPHOCYTES % (AUTO) 18.2 % (20.5-51.1); MEAN CORPUSCULAR HEMOGLOBIN 32 pg (27-31); MEAN CORPUSCULAR HGB CONC 33 g/dL (33-37); MEAN CORPUSCULAR VOLUME 98.6 fL (80-94); MONOCYTES # (AUTO) 0.8 K/uL (0.8-1.0); MONOCYTES % (AUTO) 15.6 % (1.7-9.3); NEUTROPHILS # (AUTO) 3.4 K/uL (1.8-7.7); NEUTROPHILS % (AUTO) 63.2 % (42.2-75.2); PLATELET COUNT (AUTO) 178 K/uL (140-450); RED BLOOD CELL COUNT(AUTO) 3.76 MIL/uL (4.20-5.40); RED CELL DISTRIBUTION WIDTH 14.5 % (11.6-13.7); WHITE BLOOD COUNT (AUTO) 5.4 K/uL (4.8-10.8)
[2022-09-19 07:08] LABS: PHOSPHORUS 5.1 mg/dL (2.5-4.9)
[2022-09-19 08:00] VITALS: BP 123/68; PULSE 71; PULSE 80; RESP 18; TEMP 98.5; O2SAT 98
[2022-09-19] MEDS: hydrALAZINE 10 MG TAB PO SCH (08:43)
[2022-09-19] MEDS ORDERED: SPIRONOLACTONE 25 MG TAB PO SCH (09:00)
[2022-09-19] MEDS ORDERED: METOPROLOL SUCCINATE 50 MG TABER PO SCH (09:00)
[2022-09-19] MEDS ORDERED: RIVAROXABAN 10 MG TAB PO SCH (09:00)
[2022-09-19] MEDS ORDERED: CLOPIDOGREL 75 MG TAB PO SCH (09:00)
[2022-09-19] MEDS ORDERED: BUMETANIDE 1 MG TAB PO SCH (09:00)
[2022-09-19] MEDS ORDERED: ACETAMINOPHEN 325 MG TAB PO PRN (09:25)
[2022-09-19] MEDS ORDERED: metroNIDAZOLE 500 MG/NS PREMIX 100 ML IV SCH (13:00)
[2022-09-20] MEDS ORDERED: LIDOCAINE 5% 1 EA PATCH TP SCH (09:00)
[2022-09-20] MEDS ORDERED: ACET-8905 PO (10:00)
== END 2022-09-19 16:20 | disposition home or self-care (01) | DRG 445 ==
LOC: MED 09:09 → MTU 13:25
DX: K80.20 Calculus of gallbladder without cholecystitis without obstruction (principal); I13.0 Hypertensive heart and chronic kidney disease with heart failure and stage 1 through stage 4 chronic kidney disease, or unspecified chronic kidney disease; I50.22 Chronic systolic (congestive) heart failure; I42.0 Dilated cardiomyopathy; I48.0 Paroxysmal atrial fibrillation; J44.9 Chronic obstructive pulmonary disease, unspecified; M10.9 Gout, unspecified; I25.10 Atherosclerotic heart disease of native coronary artery without angina pectoris; N18.9 Chronic kidney disease, unspecified; I34.0 Nonrheumatic mitral (valve) insufficiency; E78.5 Hyperlipidemia, unspecified; Z88.8 Allergy status to other drugs, medicaments and biological substances; Z79.899 Other long term (current) drug therapy; Z95.5 Presence of coronary angioplasty implant and graft; Z95.0 Presence of cardiac pacemaker; I25.2 Old myocardial infarction; Z86.73 Personal history of transient ischemic attack (TIA), and cerebral infarction without residual deficits; Z79.01 Long term (current) use of anticoagulants
CPT/HCPCS: 36415; 74150; 76705; 80048; 80053; 81003; 83605; 83690; 83735; 84100; 84484; 85025; 87040; 87081; 93005; 99285; J0690; J0694; J0696; J1885; J2270; J2405; J3490; J7060; Q0092

== ENCOUNTER 2022-11-14 20:07 | Inpatient (IN) | payer OTHER ==
[~2022-11-14] VITALS: Ht 170.2 cm; Wt 83.0 kg
[~2022-11-14 20:07] MED LIST changes: -ACET-10509 PO; -NICO1PAT TP; +PANT40EC PO; -PRED20TA5 PO
[2022-11-14 20:43] VITALS: BP 134/51; PULSE 70; RESP 20; TEMP 97; O2SAT 95
[2022-11-14 22:06] LABS: BASOPHILS % (AUTO) 0.5 % (0.0-2.0); EOSINOPHILS # (AUTO) 0.1 K/uL (0-0.4); EOSINOPHILS % (AUTO) 1.4 % (0.0-4.0); HEMATOCRIT 38.1 % (36-48); HEMOGLOBIN 12.5 g/dL (12.0-16.0); LYMPHOCYTES # (AUTO) 1.4 K/uL (2.5-16.5); LYMPHOCYTES % (AUTO) 16.3 % (20.5-51.1); MEAN CORPUSCULAR HEMOGLOBIN 32 pg (27-31); MEAN CORPUSCULAR HGB CONC 33 g/dL (33-37); MEAN CORPUSCULAR VOLUME 98.4 fL (80-94); MONOCYTES # (AUTO) 0.9 K/uL (0.8-1.0); MONOCYTES % (AUTO) 10.9 % (1.7-9.3); NEUTROPHILS % (AUTO) 70.9 % (42.2-75.2); PLATELET COUNT (AUTO) 228 K/uL (140-450); RED BLOOD CELL COUNT(AUTO) 3.87 MIL/uL (4.20-5.40); RED CELL DISTRIBUTION WIDTH 16.3 % (11.6-13.7); WHITE BLOOD COUNT (AUTO) 8.4 K/uL (4.8-10.8)
[2022-11-14 22:28] LABS: ALBUMIN 3.1 g/dL (3.4-5.0); ANION GAP 9.9 (8-16); CALCIUM 8.7 mg/dL (8.5-10.1); CARBON DIOXIDE 29.1 mmol/L (21-32); CREATININE 1.7 mg/dL (0.6-1.3); TOTAL BILIRUBIN 0.6 mg/dL (0.0-1.0); TOTAL PROTEIN, SERUM 6.8 g/dL (6.4-8.2)
[2022-11-14] MEDS ORDERED: ONDANSETRON 4 MG/2 ML VIAL IVP ONE (23:00)
[2022-11-14] MEDS ORDERED: LORazepam 2 MG/ML VIAL IVP PRN (23:00)
[2022-11-14] MEDS ORDERED: NITROGLYCERIN 0.4 MG TAB SL PRN (23:00)
[2022-11-14] MEDS ORDERED: FUROSEMIDE 40 MG/4 ML VIAL IVP ONE (23:00)
[2022-11-14] MEDS ORDERED: MORPHINE SULFATE 4 MG/ML SYR IVP ONE (23:00)
[2022-11-14] MEDS ORDERED: ONDANSETRON 4 MG/2 ML VIAL IVP PRN (23:00)
[2022-11-14] MEDS ORDERED: ACETAMINOPHEN 325 MG TAB PO PRN (23:00)
[2022-11-15] VITALS (13 sets, daily range): BP systolic 104–132; BP diastolic 60–105; PULSE 53–90; RESP 16–20; TEMP 97–97.8; O2SAT 95–100
[2022-11-15] MEDS: HYDROcodone/APAP 5/325 MG 1 TAB TAB PO PRN ×3 (03:45→19:53)
[2022-11-15] MEDS ORDERED: MAG SULF 2000 MG/WATER PREMIX 50 ML IV SCH (08:51)
[2022-11-15] MEDS ORDERED: LOSARTAN 25 MG TAB PO SCH (09:00)
[2022-11-15] MEDS ORDERED: ASPIRIN 81 MG TAB.CHEW PO SCH (09:00)
[2022-11-15 09:15] LABS: BASOPHILS # (AUTO) 0.1 K/uL (0.00-0.22); BASOPHILS % (AUTO) 0.9 % (0.0-2.0); EOSINOPHILS # (AUTO) 0.2 K/uL (0-0.4); HEMATOCRIT 39.2 % (36-48); HEMOGLOBIN 12.6 g/dL (12.0-16.0); LYMPHOCYTES # (AUTO) 1.5 K/uL (2.5-16.5); LYMPHOCYTES % (AUTO) 20.6 % (20.5-51.1); MEAN CORPUSCULAR HEMOGLOBIN 32 pg (27-31); MEAN CORPUSCULAR HGB CONC 32 g/dL (33-37); MONOCYTES # (AUTO) 0.7 K/uL (0.8-1.0); MONOCYTES % (AUTO) 9.8 % (1.7-9.3); NEUTROPHILS # (AUTO) 4.7 K/uL (1.8-7.7); NEUTROPHILS % (AUTO) 65.7 % (42.2-75.2); PLATELET COUNT (AUTO) 224 K/uL (140-450); RED BLOOD CELL COUNT(AUTO) 3.92 MIL/uL (4.20-5.40); RED CELL DISTRIBUTION WIDTH 16.1 % (11.6-13.7); WHITE BLOOD COUNT (AUTO) 7.2 K/uL (4.8-10.8)
[2022-11-15 09:32] LABS: ANION GAP 8.9 (8-16); CALCIUM 8.6 mg/dL (8.5-10.1); CREATININE 1.7 mg/dL (0.6-1.3)
[2022-11-15 09:36] LABS: POTASSIUM 2.9 mmol/L (3.5-5.1)
[2022-11-15] MEDS: FUROSEMIDE 40 MG/4 ML VIAL IVP SCH ×2 (09:40→21:34)
[2022-11-15] MEDS: ATORVASTATIN 20 MG TAB PO SCH (09:40)
[2022-11-15] MEDS: METOPROLOL 25 MG TAB PO SCH ×2 (09:41→21:00)
[2022-11-15] MEDS: PANTOPRAZOLE 40 MG TABEC PO SCH (09:41)
[2022-11-15] MEDS: CLOPIDOGREL 75 MG TAB PO SCH (09:44)
[2022-11-15] MEDS: RIVAROXABAN 10 MG TAB PO SCH (09:44)
[2022-11-15] MEDS ORDERED: POTASSIUM CHLORIDE 10 MEQ TABER PO SCH (10:47)
[2022-11-15] MEDS ORDERED: KCL 20 MEQ IN 100 mL PREMIX 100 ML IV SCH (11:30)
[2022-11-15] MEDS: BUMETANIDE 1 MG/4 ML VIAL IV SCH (19:14)
[2022-11-15 19:28] LABS: APPEARANCE,URINE CLEAR (CLEAR); BILIRUBIN,URINE NEGATIVE (NEGATIVE); BLOOD, URINE NEGATIVE (NEGATIVE); COLOR,URINE YELLOW (YELLOW); LEUKOCYTE ESTERASE ,URINE NEGATIVE (NEGATIVE); NITRITE, URINE NEGATIVE (NEGATIVE); PROTEIN,URINE NEGATIVE (NEGATIVE); UGLUCOSE NEGATIVE (NEGATIVE); UROBILINOGEN,URINE 0.2 EU/dL (0.2 - 1)
[2022-11-15 19:35] LABS: URINE TOTAL PROTEIN 8.8 mg/dL (0-12); URINE TPRO CREAT RATIO 0.1 (0-0.20)
[2022-11-16 06:27] LABS: ANION GAP 10.5 (8-16); CARBON DIOXIDE 30.5 mmol/L (21-32); CREATININE 1.6 mg/dL (0.6-1.3)
[2022-11-16 07:18] VITALS: O2SAT 97
[2022-11-16 07:26] VITALS: PULSE 62; RESP 19; O2SAT 100
[2022-11-16 07:27] VITALS: PULSE 62; RESP 20; O2SAT 100
[2022-11-16 08:00] LABS: HEMOGLOBIN 12.4 g/dL (12.0-16.0); MEAN CORPUSCULAR HEMOGLOBIN 32 pg (27-31); MEAN CORPUSCULAR HGB CONC 33 g/dL (33-37); MEAN CORPUSCULAR VOLUME 98.8 fL (80-94); PLATELET COUNT (AUTO) 212 K/uL (140-450); RED BLOOD CELL COUNT(AUTO) 3.85 MIL/uL (4.20-5.40); RED CELL DISTRIBUTION WIDTH 15.8 % (11.6-13.7); WHITE BLOOD COUNT (AUTO) 7.1 K/uL (4.8-10.8)
[2022-11-16 08:23] LABS: BASOPHILS % (MANUAL) 0 % (0-2); BLASTS, MANUAL % 0 % (0-0); EOSINOPHILS % (MANUAL) 5 % (0-4); LYMPHOCYTES % (MANUAL) 14 % (20-46); METAMYELOCYTES % 0 % (0-0); MONOCYTES % (MANUAL) 10 % (5-12); MYELOCYTES % 0 % (0-0); OTHER CELLS,MANUAL % 0 (0-0); PLASMA CELLS 0; PLATELET ESTIMATE ADEQUATE; PROMYELOCYTES % 0 % (0-0)
[2022-11-16] MEDS: HYDROcodone/APAP 5/325 MG 1 TAB TAB PO PRN (08:49)
[2022-11-16] MEDS: FUROSEMIDE 40 MG/4 ML VIAL IVP SCH (08:50)
[2022-11-16] MEDS: BUMETANIDE 1 MG/4 ML VIAL IV SCH (08:50)
[2022-11-16] MEDS: CLOPIDOGREL 75 MG TAB PO SCH (08:51)
[2022-11-16] MEDS: ATORVASTATIN 20 MG TAB PO SCH (08:51)
[2022-11-16] MEDS: PANTOPRAZOLE 40 MG TABEC PO SCH (08:51)
[2022-11-16] MEDS: METOPROLOL 25 MG TAB PO SCH (08:51)
[2022-11-16] MEDS: RIVAROXABAN 10 MG TAB PO SCH (08:51)
[2022-11-16] MEDS ORDERED: SPIRONOLACTONE 25 MG TAB PO SCH (09:00)
[2022-11-16] MEDS ORDERED: POTASSIUM CHLORIDE 40 MEQ, LIDOCAINE 1% 25 MG in NACL 0.9% 250 ML IV ONE (10:30)
[2022-11-16] MEDS ORDERED: POTASSIUM CHLORIDE 10 MEQ TABER PO SCH (11:00)
[2022-11-16 12:28] VITALS: BP 125/68; PULSE 75; RESP 20; TEMP 97.1
== END 2022-11-16 13:00 | disposition home health service (06) | DRG 280 ==
LOC: MED 20:07 → MTU 23:10
PROVIDERS: ADMIT Internal Medicine; ATTEND Internal Medicine
DX: I13.0 Hypertensive heart and chronic kidney disease with heart failure and stage 1 through stage 4 chronic kidney disease, or unspecified chronic kidney disease (principal); I50.23 Acute on chronic systolic (congestive) heart failure; I21.A1 Myocardial infarction type 2; E44.0 Moderate protein-calorie malnutrition; N17.9 Acute kidney failure, unspecified; I42.8 Other cardiomyopathies; I48.91 Unspecified atrial fibrillation; E78.5 Hyperlipidemia, unspecified; E87.6 Hypokalemia; J44.9 Chronic obstructive pulmonary disease, unspecified; I25.10 Atherosclerotic heart disease of native coronary artery without angina pectoris; T50.2X5A Adverse effect of carbonic-anhydrase inhibitors, benzothiadiazides and other diuretics, initial encounter; I27.20 Pulmonary hypertension, unspecified; N18.9 Chronic kidney disease, unspecified; E11.22 Type 2 diabetes mellitus with diabetic chronic kidney disease; Z88.8 Allergy status to other drugs, medicaments and biological substances; Z79.899 Other long term (current) drug therapy; Z95.0 Presence of cardiac pacemaker; Z90.49 Acquired absence of other specified parts of digestive tract; Y92.89 Other specified places as the place of occurrence of the external cause; Z68.28 Body mass index [BMI] 28.0-28.9, adult
CPT/HCPCS: 36415; 71045; 76770; 80048; 80053; 81003; 82570; 83690; 83735; 83880; 84300; 84484; 85025; 87081; 93005; 96374; 96375; 99285; J1940; J2001; J2270; J2405; J3475; J3480; J3490; J7030; Q0092

== ENCOUNTER 2022-11-25 17:20 | Inpatient (IN) | payer OTHER ==
[~2022-11-25] VITALS: Ht 170.2 cm; Wt 82.6 kg
[2022-11-25 18:17] VITALS: BP 120/70; PULSE 70; RESP 20; TEMP 98.3; O2SAT 100
[2022-11-25] MEDS ORDERED: ALBUTEROL SULFATE/IPRATROPIU 3 ML SOL IH ONE (18:35)
[2022-11-25 18:38] VITALS: PULSE 73; PULSE 79; RESP 26; RESP 29; O2SAT 100; O2SAT 99
[2022-11-25 18:39] LABS: INR 1.84 (0.8-1.2); PARTIAL THROMBOPLASTIN TIME 37.1 secs (22-35.6); PROTHROMBIN TIME 18.8 secs (10.8-13.4)
[2022-11-25 18:42] LABS: BASOPHILS # (AUTO) 0.1 K/uL (0.00-0.22); BASOPHILS % (AUTO) 0.9 % (0.0-2.0); EOSINOPHILS # (AUTO) 0.2 K/uL (0-0.4); EOSINOPHILS % (AUTO) 2.2 % (0.0-4.0); HEMATOCRIT 36.6 % (36-48); HEMOGLOBIN 11.9 g/dL (12.0-16.0); LYMPHOCYTES # (AUTO) 0.6 K/uL (2.5-16.5); LYMPHOCYTES % (AUTO) 8.2 % (20.5-51.1); MEAN CORPUSCULAR HEMOGLOBIN 32 pg (27-31); MEAN CORPUSCULAR HGB CONC 33 g/dL (33-37); MEAN CORPUSCULAR VOLUME 99.4 fL (80-94); MONOCYTES # (AUTO) 0.5 K/uL (0.8-1.0); MONOCYTES % (AUTO) 6.4 % (1.7-9.3); NEUTROPHILS # (AUTO) 6.5 K/uL (1.8-7.7); NEUTROPHILS % (AUTO) 82.3 % (42.2-75.2); PLATELET COUNT (AUTO) 192 K/uL (140-450); RED BLOOD CELL COUNT(AUTO) 3.68 MIL/uL (4.20-5.40); RED CELL DISTRIBUTION WIDTH 15.7 % (11.6-13.7); WHITE BLOOD COUNT (AUTO) 7.9 K/uL (4.8-10.8)
[2022-11-25 18:56] LABS: ANION GAP 15.9 (8-16); CALCIUM 9.1 mg/dL (8.5-10.1); CARBON DIOXIDE 24.2 mmol/L (21-32); CREATININE 2.4 mg/dL (0.6-1.3); POTASSIUM 4.1 mmol/L (3.5-5.1); TOTAL BILIRUBIN 1.7 mg/dL (0.0-1.0); TOTAL PROTEIN, SERUM 6.8 g/dL (6.4-8.2)
[2022-11-25 18:57] LABS: ANISOCYTOSIS 1+; HELMET CELLS 1+; OVALOCYTES 1+; POIKILOCYTOSIS 2+; STOMATOCYTES 1+; TEAR DROP CELLS 1+
[2022-11-25] MEDS ORDERED: FUROSEMIDE 100 MG/10 ML VIAL IVP ONE (21:40)
[2022-11-25] MEDS ORDERED: ACETAMINOPHEN 325 MG TAB PO PRN (23:50)
[2022-11-25] MEDS ORDERED: MAGNESIUM OXIDE 400 MG TAB PO PRN (23:50)
[2022-11-25] MEDS ORDERED: HYDROcodone/APAP 5/325 MG 1 TAB TAB PO PRN (23:50)
[2022-11-25] MEDS ORDERED: POTASSIUM CHLORIDE 10 MEQ TABER PO PRN (23:50)
[2022-11-25] MEDS ORDERED: MAG SULF 2000 MG/WATER PREMIX 50 ML IV PRN (23:50)
[2022-11-25] MEDS ORDERED: KCL 20 MEQ IN 100 mL PREMIX 200 ML IV PRN (23:50)
[2022-11-26] VITALS (16 sets, daily range): BP systolic 123–136; BP diastolic 68–98; PULSE 68–88; RESP 18–22; TEMP 97.2–98.7; O2SAT 94–100
[2022-11-26] MEDS: MORPHINE SULFATE 4 MG/ML SYR IVP PRN ×3 (01:46→20:40)
[2022-11-26 06:45] LABS: ALBUMIN 2.7 g/dL (3.4-5.0); ANION GAP 15.2 (8-16); CALCIUM 8.7 mg/dL (8.5-10.1); CARBON DIOXIDE 24.6 mmol/L (21-32); POTASSIUM 3.8 mmol/L (3.5-5.1); TOTAL BILIRUBIN 1.5 mg/dL (0.0-1.0); TOTAL PROTEIN, SERUM 6.1 g/dL (6.4-8.2)
[2022-11-26 06:51] LABS: BASOPHILS # (AUTO) 0.1 K/uL (0.00-0.22); BASOPHILS % (AUTO) 1.2 % (0.0-2.0); EOSINOPHILS # (AUTO) 0.2 K/uL (0-0.4); EOSINOPHILS % (AUTO) 3.7 % (0.0-4.0); HEMATOCRIT 32.2 % (36-48); HEMOGLOBIN 10.5 g/dL (12.0-16.0); LYMPHOCYTES # (AUTO) 0.8 K/uL (2.5-16.5); LYMPHOCYTES % (AUTO) 12.9 % (20.5-51.1); MEAN CORPUSCULAR HEMOGLOBIN 32 pg (27-31); MEAN CORPUSCULAR HGB CONC 33 g/dL (33-37); MEAN CORPUSCULAR VOLUME 98.5 fL (80-94); MONOCYTES # (AUTO) 0.6 K/uL (0.8-1.0); MONOCYTES % (AUTO) 9.5 % (1.7-9.3); NEUTROPHILS # (AUTO) 4.8 K/uL (1.8-7.7); NEUTROPHILS % (AUTO) 72.7 % (42.2-75.2); PLATELET COUNT (AUTO) 186 K/uL (140-450); RED BLOOD CELL COUNT(AUTO) 3.27 MIL/uL (4.20-5.40); RED CELL DISTRIBUTION WIDTH 15.7 % (11.6-13.7); WHITE BLOOD COUNT (AUTO) 6.6 K/uL (4.8-10.8)
[2022-11-26] MEDS: FUROSEMIDE 40 MG/4 ML VIAL IVP SCH (09:31)
[2022-11-26] MEDS: ONDANSETRON 4 MG/2 ML VIAL IVP PRN ×2 (11:27→17:27)
[2022-11-27] VITALS (9 sets, daily range): BP systolic 118–137; BP diastolic 70–96; PULSE 56–107; RESP 18–20; TEMP 96.9–97.9; O2SAT 97–100
[2022-11-27] MEDS: MORPHINE SULFATE 4 MG/ML SYR IVP PRN ×4 (00:39→23:16)
[2022-11-27 06:39] LABS: BASOPHILS # (AUTO) 0.1 K/uL (0.00-0.22); BASOPHILS % (AUTO) 1.1 % (0.0-2.0); EOSINOPHILS # (AUTO) 0.3 K/uL (0-0.4); HEMATOCRIT 32.6 % (36-48); HEMOGLOBIN 10.7 g/dL (12.0-16.0); LYMPHOCYTES % (AUTO) 20.9 % (20.5-51.1); MEAN CORPUSCULAR HEMOGLOBIN 33 pg (27-31); MEAN CORPUSCULAR HGB CONC 33 g/dL (33-37); MEAN CORPUSCULAR VOLUME 99.5 fL (80-94); MONOCYTES # (AUTO) 0.5 K/uL (0.8-1.0); MONOCYTES % (AUTO) 11.4 % (1.7-9.3); NEUTROPHILS # (AUTO) 2.9 K/uL (1.8-7.7); NEUTROPHILS % (AUTO) 60.6 % (42.2-75.2); PLATELET COUNT (AUTO) 173 K/uL (140-450); RED BLOOD CELL COUNT(AUTO) 3.28 MIL/uL (4.20-5.40); RED CELL DISTRIBUTION WIDTH 15.6 % (11.6-13.7); WHITE BLOOD COUNT (AUTO) 4.8 K/uL (4.8-10.8)
[2022-11-27 06:46] LABS: ALBUMIN 2.7 g/dL (3.4-5.0); ANION GAP 12.6 (8-16); CALCIUM 8.8 mg/dL (8.5-10.1); CARBON DIOXIDE 28.6 mmol/L (21-32); CREATININE 1.8 mg/dL (0.6-1.3); POTASSIUM 4.2 mmol/L (3.5-5.1); TOTAL BILIRUBIN 1.7 mg/dL (0.0-1.0); TOTAL PROTEIN, SERUM 6.2 g/dL (6.4-8.2)
[2022-11-27] MEDS: FUROSEMIDE 40 MG/4 ML VIAL IVP SCH (08:50)
[2022-11-27] MEDS: ONDANSETRON 4 MG/2 ML VIAL IVP PRN (19:00)
[2022-11-27] MEDS: FUROSEMIDE 100 MG/10 ML VIAL IVP SCH (20:36)
[2022-11-28] VITALS (10 sets, daily range): BP systolic 118–137; BP diastolic 75–89; PULSE 65–113; RESP 18–20; TEMP 96.7–97.2; O2SAT 96–100
[2022-11-28] MEDS: MORPHINE SULFATE 4 MG/ML SYR IVP PRN ×2 (04:42→08:37)
[2022-11-28 07:11] LABS: BASOPHILS % (AUTO) 1.1 % (0.0-2.0); EOSINOPHILS # (AUTO) 0.3 K/uL (0-0.4); EOSINOPHILS % (AUTO) 6.5 % (0.0-4.0); HEMATOCRIT 33.7 % (36-48); HEMOGLOBIN 10.9 g/dL (12.0-16.0); LYMPHOCYTES # (AUTO) 0.8 K/uL (2.5-16.5); LYMPHOCYTES % (AUTO) 18.5 % (20.5-51.1); MEAN CORPUSCULAR HEMOGLOBIN 32 pg (27-31); MEAN CORPUSCULAR HGB CONC 32 g/dL (33-37); MEAN CORPUSCULAR VOLUME 99.3 fL (80-94); MONOCYTES # (AUTO) 0.5 K/uL (0.8-1.0); MONOCYTES % (AUTO) 11.4 % (1.7-9.3); NEUTROPHILS # (AUTO) 2.7 K/uL (1.8-7.7); NEUTROPHILS % (AUTO) 62.5 % (42.2-75.2); PLATELET COUNT (AUTO) 183 K/uL (140-450); RED BLOOD CELL COUNT(AUTO) 3.39 MIL/uL (4.20-5.40); RED CELL DISTRIBUTION WIDTH 15.3 % (11.6-13.7); WHITE BLOOD COUNT (AUTO) 4.2 K/uL (4.8-10.8)
[2022-11-28 08:04] LABS: ALBUMIN 2.8 g/dL (3.4-5.0); CREATININE 1.6 mg/dL (0.6-1.3); MAGNESIUM 1.9 mg/dL (1.8-2.4); POTASSIUM 3.7 mmol/L (3.5-5.1); TOTAL BILIRUBIN 1.3 mg/dL (0.0-1.0); TOTAL PROTEIN, SERUM 6.3 g/dL (6.4-8.2)
[2022-11-28 08:11] LABS: CALCIUM 8.9 mg/dL (8.5-10.1); CARBON DIOXIDE 27.7 mmol/L (21-32)
[2022-11-28] MEDS: FUROSEMIDE 100 MG/10 ML VIAL IVP SCH (08:36)
[2022-11-28] MEDS: ONDANSETRON 4 MG/2 ML VIAL IVP PRN (08:38)
[2022-11-28] MEDS ORDERED: BUME1TAB92 PO (10:54)
== END 2022-11-28 11:50 | disposition home or self-care (01) | DRG 280 ==
LOC: MED 17:20 → MTU 23:50
PROVIDERS: ADMIT Student in an Organized Health Care Education/Training Program; ATTEND Student in an Organized Health Care Education/Training Program
PROC: 5A09357 Assistance with Respiratory Ventilation, Less than 24 Consecutive Hours, Continuous Positive Airway Pressure (ICD-10-PCS; principal; 2022-11-28)
DX: I11.0 Hypertensive heart disease with heart failure (principal); I21.4 Non-ST elevation (NSTEMI) myocardial infarction; I50.23 Acute on chronic systolic (congestive) heart failure; J96.01 Acute respiratory failure with hypoxia; E44.1 Mild protein-calorie malnutrition; E78.5 Hyperlipidemia, unspecified; K21.9 Gastro-esophageal reflux disease without esophagitis; E11.9 Type 2 diabetes mellitus without complications; Z88.8 Allergy status to other drugs, medicaments and biological substances; Z79.899 Other long term (current) drug therapy; Z68.28 Body mass index [BMI] 28.0-28.9, adult
CPT/HCPCS: 36415; 71045; 80053; 83735; 83880; 84484; 85025; 85379; 85610; 85730; 87081; 93005; 94640; 94660; 96374; 99285; J1644; J1940; J2270; J2405

== ENCOUNTER 2022-12-04 22:29 | Inpatient (IN) | payer OTHER ==
[~2022-12-04] VITALS: Ht 170.2 cm; Wt 83.0 kg
[2022-12-04 22:32] VITALS: BP 114/69; PULSE 126; RESP 16; TEMP 97.1; O2SAT 100
[2022-12-04 23:56] LABS: BASOPHILS % (AUTO) 0.5 % (0.0-2.0); EOSINOPHILS # (AUTO) 0.1 K/uL (0-0.4); EOSINOPHILS % (AUTO) 0.7 % (0.0-4.0); HEMATOCRIT 36.3 % (36-48); HEMOGLOBIN 11.6 g/dL (12.0-16.0); LYMPHOCYTES # (AUTO) 1.2 K/uL (2.5-16.5); LYMPHOCYTES % (AUTO) 15.1 % (20.5-51.1); MEAN CORPUSCULAR HEMOGLOBIN 31 pg (27-31); MEAN CORPUSCULAR HGB CONC 32 g/dL (33-37); MEAN CORPUSCULAR VOLUME 97.8 fL (80-94); MONOCYTES # (AUTO) 1.1 K/uL (0.8-1.0); MONOCYTES % (AUTO) 13.8 % (1.7-9.3); NEUTROPHILS # (AUTO) 5.5 K/uL (1.8-7.7); NEUTROPHILS % (AUTO) 69.9 % (42.2-75.2); PLATELET COUNT (AUTO) 255 K/uL (140-450); RED BLOOD CELL COUNT(AUTO) 3.72 MIL/uL (4.20-5.40); RED CELL DISTRIBUTION WIDTH 15.7 % (11.6-13.7); WHITE BLOOD COUNT (AUTO) 7.8 K/uL (4.8-10.8)
[2022-12-05] VITALS (7 sets, daily range): BP systolic 102–115; BP diastolic 68–92; PULSE 96–130; RESP 18–34; TEMP 97.5–97.6; O2SAT 94–100
[2022-12-05] MEDS ORDERED: NACL 0.9% 1,000 ML IV ONE (00:10)
[2022-12-05 00:20] LABS: ANION GAP 13.8 (8-16); CALCIUM 8.2 mg/dL (8.5-10.1); CARBON DIOXIDE 27.5 mmol/L (21-32); CHLORIDE 102 mmol/L (98-107); CREATININE 1.9 mg/dL (0.6-1.3); GFR ARICAN-AMERICAN 34 mL/min (>90); GFR NON ARICAN-AMERICAN 28 mL/min (>90); GLUCOSE 124 mg/dL (74-106); POTASSIUM 3.3 mmol/L (3.5-5.1); SODIUM SERUM 140 mmol/L (136-145); UREA NITROGEN, BLOOD 28 mg/dL (7-18)
[2022-12-05 00:28] LABS: ALANINE AMINOTRANSFERASE 24 U/L (12-78); ALBUMIN 2.9 g/dL (3.4-5.0); ALKALINE PHOSPHATASE 118 U/L (50-136); ASPARTATE AMINOTRANSFERASE 24 U/L (15-37); LIPASE 31 U/L (16-77); TOTAL BILIRUBIN 0.9 mg/dL (0.0-1.0); TOTAL PROTEIN, SERUM 6.6 g/dL (6.4-8.2)
[2022-12-05] MEDS ORDERED: MORPHINE SULFATE 4 MG/ML SYR IVP ONE (01:35)
[2022-12-05] MEDS ORDERED: MAGNESIUM OXIDE 400 MG TAB PO PRN (02:25)
[2022-12-05] MEDS ORDERED: ACETAMINOPHEN 325 MG TAB PO PRN (02:25)
[2022-12-05] MEDS ORDERED: KCL 20 MEQ IN 100 mL PREMIX 200 ML IV PRN (02:25)
[2022-12-05] MEDS ORDERED: MAG SULF 2000 MG/WATER PREMIX 50 ML IV PRN (02:25)
[2022-12-05] MEDS ORDERED: POTASSIUM CHLORIDE 10 MEQ TABER PO PRN (02:25)
[2022-12-05] MEDS: METOPROLOL SUCCINATE 50 MG TABER PO SCH ×2 (03:37→09:29)
[2022-12-05] MEDS: NACL 0.9% 1,000 ML IV SCH ×2 (03:39→14:55)
[2022-12-05] MEDS ORDERED: HYDROcodone/APAP 5/325 MG 1 TAB TAB PO SCH (05:48)
[2022-12-05] MEDS: HYDROcodone/APAP 5/325 MG 1 TAB TAB PO PRN ×2 (06:22→12:10)
[2022-12-05 09:26] LABS: ANION GAP 14.6 (8-16); CARBON DIOXIDE 26.9 mmol/L (21-32); POTASSIUM 3.5 mmol/L (3.5-5.1)
[2022-12-05] MEDS: ATORVASTATIN 20 MG TAB PO SCH (09:29)
[2022-12-05] MEDS: ASPIRIN 81 MG TAB.CHEW PO SCH (09:29)
[2022-12-05] MEDS: ONDANSETRON 4 MG/2 ML VIAL IVP PRN ×2 (10:07→20:49)
[2022-12-05] MEDS ORDERED: NITROGLYCERIN 0.4 MG TAB SL PRN (14:20)
[2022-12-05 15:03] LABS: BILIRUBIN,URINE 1+ (NEGATIVE); BLOOD, URINE NEGATIVE (NEGATIVE); LEUKOCYTE ESTERASE ,URINE TRACE (NEGATIVE); NITRITE, URINE NEGATIVE (NEGATIVE); PH,URINE 5.5 (5.0-9.0); PROTEIN,URINE 2+ (NEGATIVE); UGLUCOSE NEGATIVE (NEGATIVE); UROBILINOGEN,URINE 0.2 EU/dL (0.2 - 1)
[2022-12-05 15:06] LABS: APPEARANCE,URINE SLIGHTLY CLOUDY (CLEAR); COLOR,URINE ORANGE (YELLOW)
[2022-12-05 15:14] LABS: ICTOTEST NEGATIVE (NEGATIVE)
[2022-12-05 15:15] LABS: BACTERIA,URINE 10-30 (MOD) /HPF (None Seen); RBC,URINE 0-5 /HPF (0-5); SQUAMOUS EPITHELIAL CELL,UR 4-10 (MOD) /LPF (0-3 (FEW)); WBC,URINE 0-5 /HPF (0-5)
[2022-12-05] MEDS ORDERED: guaiFENesin 20 MG/ML UDC PO PRN (16:10)
[2022-12-05] MEDS ORDERED: DIGOXIN 0.25 MG/ML AMP IV SCH ×2 (16:10→22:00)
[2022-12-06] VITALS: BP 114/79; PULSE 89; RESP 20; TEMP 97.6; O2SAT 100
[2022-12-06 04:00] VITALS: BP 126/91; PULSE 108; PULSE 88; RESP 20; TEMP 97.6; O2SAT 100
[2022-12-06] MEDS ORDERED: DIGOXIN 0.25 MG/ML AMP IV SCH (04:00)
[2022-12-06 06:25] LABS: BASOPHILS % (AUTO) 0.5 % (0.0-2.0); EOSINOPHILS # (AUTO) 0.2 K/uL (0-0.4); EOSINOPHILS % (AUTO) 3.7 % (0.0-4.0); HEMATOCRIT 34.7 % (36-48); HEMOGLOBIN 11.1 g/dL (12.0-16.0); LYMPHOCYTES % (AUTO) 16.7 % (20.5-51.1); MEAN CORPUSCULAR HEMOGLOBIN 31 pg (27-31); MEAN CORPUSCULAR HGB CONC 32 g/dL (33-37); MEAN CORPUSCULAR VOLUME 97.2 fL (80-94); MONOCYTES % (AUTO) 15.5 % (1.7-9.3); NEUTROPHILS % (AUTO) 63.6 % (42.2-75.2); PLATELET COUNT (AUTO) 245 K/uL (140-450); RED BLOOD CELL COUNT(AUTO) 3.57 MIL/uL (4.20-5.40); WHITE BLOOD COUNT (AUTO) 6.2 K/uL (4.8-10.8)
[2022-12-06 06:53] LABS: ANION GAP 13.3 (8-16); CARBON DIOXIDE 26.6 mmol/L (21-32); CREATININE 2.2 mg/dL (0.6-1.3); POTASSIUM 3.9 mmol/L (3.5-5.1)
[2022-12-06] MEDS: ASPIRIN 81 MG TAB.CHEW PO SCH (08:52)
[2022-12-06] MEDS: ATORVASTATIN 20 MG TAB PO SCH (08:52)
[2022-12-06] MEDS: METOPROLOL SUCCINATE 50 MG TABER PO SCH (08:53)
[2022-12-06] MEDS ORDERED: BUMETANIDE 1 MG TAB PO SCH (09:00)
[2022-12-06 13:06] VITALS: BP 125/89; PULSE 100; RESP 20; TEMP 97.6
== END 2022-12-06 13:35 | disposition home or self-care (01) | DRG 280 ==
LOC: MED 22:29 → MTU 12-05 02:26 → MIC 12-05 07:28 → MTU 12-05 17:54
PROVIDERS: ADMIT Hospitalist; ATTEND Hospitalist
DX: I13.0 Hypertensive heart and chronic kidney disease with heart failure and stage 1 through stage 4 chronic kidney disease, or unspecified chronic kidney disease (principal); I21.A1 Myocardial infarction type 2; I50.43 Acute on chronic combined systolic (congestive) and diastolic (congestive) heart failure; N17.0 Acute kidney failure with tubular necrosis; J96.01 Acute respiratory failure with hypoxia; N39.0 Urinary tract infection, site not specified; R65.10 Systemic inflammatory response syndrome (SIRS) of non-infectious origin without acute organ dysfunction; I42.0 Dilated cardiomyopathy; E78.5 Hyperlipidemia, unspecified; N18.9 Chronic kidney disease, unspecified; E87.6 Hypokalemia; I48.0 Paroxysmal atrial fibrillation; J45.909 Unspecified asthma, uncomplicated; I25.10 Atherosclerotic heart disease of native coronary artery without angina pectoris; J44.9 Chronic obstructive pulmonary disease, unspecified; Z90.49 Acquired absence of other specified parts of digestive tract; Z88.8 Allergy status to other drugs, medicaments and biological substances; Z95.810 Presence of automatic (implantable) cardiac defibrillator
CPT/HCPCS: 36415; 71045; 76770; 80048; 80053; 81001; 83690; 83735; 84100; 84484; 85025; 87081; 87086; 93005; 96361; 96374; 99291; J1160; J1644; J2270; J2405; Q0092

== ENCOUNTER 2022-12-07 05:35 | Inpatient (IN) | payer OTHER ==
[~2022-12-07] VITALS: Ht 167.6 cm; Wt 92.5 kg
[2022-12-07] VITALS (13 sets, daily range): BP systolic 88–150; BP diastolic 56–144; PULSE 74–126; RESP 16–28; TEMP 97.3–97.8; O2SAT 94–100
[2022-12-07 06:48] LABS: BASOPHILS % (AUTO) 0.5 % (0.0-2.0); EOSINOPHILS # (AUTO) 0.1 K/uL (0-0.4); EOSINOPHILS % (AUTO) 1.8 % (0.0-4.0); HEMATOCRIT 34.7 % (36-48); HEMOGLOBIN 11.2 g/dL (12.0-16.0); LYMPHOCYTES # (AUTO) 0.6 K/uL (2.5-16.5); LYMPHOCYTES % (AUTO) 8.4 % (20.5-51.1); MEAN CORPUSCULAR HEMOGLOBIN 31 pg (27-31); MEAN CORPUSCULAR HGB CONC 32 g/dL (33-37); MEAN CORPUSCULAR VOLUME 96.5 fL (80-94); MONOCYTES # (AUTO) 0.9 K/uL (0.8-1.0); MONOCYTES % (AUTO) 11.8 % (1.7-9.3); NEUTROPHILS # (AUTO) 5.9 K/uL (1.8-7.7); NEUTROPHILS % (AUTO) 77.5 % (42.2-75.2); PLATELET COUNT (AUTO) 276 K/uL (140-450); WHITE BLOOD COUNT (AUTO) 7.6 K/uL (4.8-10.8)
[2022-12-07 07:01] LABS: MAGNESIUM 1.8 mg/dL (1.8-2.4); PHOSPHORUS 2.5 mg/dL (2.5-4.9)
[2022-12-07 07:04] LABS: ALBUMIN 2.6 g/dL (3.4-5.0); ANION GAP 14.2 (8-16); CALCIUM 7.5 mg/dL (8.5-10.1); CARBON DIOXIDE 25.1 mmol/L (21-32); CREATININE 1.8 mg/dL (0.6-1.3); POTASSIUM 3.3 mmol/L (3.5-5.1); TOTAL BILIRUBIN 0.9 mg/dL (0.0-1.0); TOTAL PROTEIN, SERUM 5.8 g/dL (6.4-8.2)
[2022-12-07 07:07] LABS: INR 1.38 (0.8-1.2); PARTIAL THROMBOPLASTIN TIME 28.8 secs (22-35.6); PROTHROMBIN TIME 14.3 secs (10.8-13.4)
[2022-12-07] MEDS ORDERED: FUROSEMIDE 40 MG/4 ML VIAL IVP ONE (07:25)
[2022-12-07] MEDS ORDERED: NACL 0.9% 500 ML IV ONE (07:25)
[2022-12-07] MEDS ORDERED: hePARIN / DEXT 5% PREMIX 250 ML IV SCH ×3 (07:40→19:20)
[2022-12-07] MEDS ORDERED: HEPARIN PER PHARMACY MC PRN (07:40)
[2022-12-07] MEDS ORDERED: ASPIRIN 81 MG TAB.CHEW PO ONE (07:45)
[2022-12-07] MEDS ORDERED: POTASSIUM CHLORIDE 10 MEQ TABER PO ONE (08:15)
[2022-12-07] MEDS ORDERED: AMIODARONE 150 MG in DEXTROSE 5% 100 ML IV ONE (09:05)
[2022-12-07] MEDS ORDERED: AMIODARONE 450 MG in DEXTROSE 5% 250 ML IV ONE (09:05)
[2022-12-07] MEDS ORDERED: AMIODARONE 150 MG/3 ML VIAL IV ONE ×2 (09:41→09:43)
[2022-12-07] MEDS ORDERED: LORazepam 2 MG/ML VIAL IVP PRN (09:45)
[2022-12-07] MEDS ORDERED: ONDANSETRON 4 MG/2 ML VIAL IVP PRN (09:45)
[2022-12-07] MEDS ORDERED: ACETAMINOPHEN 325 MG TAB PO PRN (09:45)
[2022-12-07] MEDS ORDERED: NOREPINEPHRINE 4 MG in DEXTROSE 5% 250 ML IV PRN (10:30)
[2022-12-07] MEDS ORDERED: FAMOTIDINE 20 MG/2 ML VIAL IV SCH (11:25)
[2022-12-07] MEDS ORDERED: AMIODARONE 200 MG TAB PO ONE (11:30)
[2022-12-07 11:44] LABS: AMPHETAMINE, URINE NEGATIVE ng/ml (NEG <=1000); BARBITURATE, URINE NEGATIVE ng/ml (NEG <=200); BENZODIAZEPINE, URINE NEGATIVE ng/mL (NEG <=200); CANNABINOID, URINE NEGATIVE ng/mL (NEG <=50); COCAINE, URINE NEGATIVE ng/mL (NEG <=300); OPIATE, URINE POSITIVE ng/mL (NEG <=2000); PHENCYCLIDINE SCREEN,URINE NEGATIVE ng/mL (NEG <=25)
[2022-12-07] MEDS: AMIODARONE 450 MG in DEXTROSE 5% 250 ML IV SCH (15:47)
[2022-12-07] MEDS: BUMETANIDE 1 MG/4 ML VIAL IV SCH (18:09)
[2022-12-07] MEDS ORDERED: HEPARIN PER PHARMACY MC SCH (19:20)
[2022-12-07] MEDS ORDERED: HYDROcodone/APAP 5/325 MG 1 TAB TAB PO PRN (20:25)
[2022-12-07] MEDS: METOPROLOL 25 MG TAB PO SCH (21:15)
[2022-12-08] VITALS (17 sets, daily range): BP systolic 104–136; BP diastolic 38–98; PULSE 63–80; RESP 11–26; TEMP 97.2–97.7; O2SAT 92–100
[2022-12-08] MEDS: AMIODARONE 450 MG in DEXTROSE 5% 250 ML IV SCH (02:35)
[2022-12-08 06:34] LABS: ALBUMIN 2.5 g/dL (3.4-5.0); ANION GAP 15.4 (8-16); CALCIUM 7.8 mg/dL (8.5-10.1); CARBON DIOXIDE 24.7 mmol/L (21-32); CREATININE 1.6 mg/dL (0.6-1.3); MAGNESIUM 1.6 mg/dL (1.8-2.4); POTASSIUM 4.1 mmol/L (3.5-5.1); TOTAL BILIRUBIN 1.2 mg/dL (0.0-1.0); TOTAL PROTEIN, SERUM 5.8 g/dL (6.4-8.2)
[2022-12-08 07:01] LABS: BASOPHILS % (AUTO) 0.4 % (0.0-2.0); EOSINOPHILS # (AUTO) 0.1 K/uL (0-0.4); HEMATOCRIT 35.8 % (36-48); HEMOGLOBIN 11.5 g/dL (12.0-16.0); LYMPHOCYTES # (AUTO) 1.2 K/uL (2.5-16.5); LYMPHOCYTES % (AUTO) 18.4 % (20.5-51.1); MEAN CORPUSCULAR HEMOGLOBIN 32 pg (27-31); MEAN CORPUSCULAR HGB CONC 32 g/dL (33-37); MEAN CORPUSCULAR VOLUME 99.5 fL (80-94); MONOCYTES % (AUTO) 15.5 % (1.7-9.3); NEUTROPHILS # (AUTO) 4.2 K/uL (1.8-7.7); NEUTROPHILS % (AUTO) 63.7 % (42.2-75.2); PLATELET COUNT (AUTO) 237 K/uL (140-450); RED BLOOD CELL COUNT(AUTO) 3.59 MIL/uL (4.20-5.40); RED CELL DISTRIBUTION WIDTH 15.9 % (11.6-13.7); WHITE BLOOD COUNT (AUTO) 6.6 K/uL (4.8-10.8)
[2022-12-08] MEDS ORDERED: ATORVASTATIN 80 MG TAB PO SCH (09:00)
[2022-12-08] MEDS ORDERED: CLOPIDOGREL 75 MG TAB PO SCH (09:00)
[2022-12-08] MEDS: BUMETANIDE 1 MG/4 ML VIAL IV SCH (09:00)
[2022-12-08] MEDS: METOPROLOL 25 MG TAB PO SCH (10:34)
== END 2022-12-08 13:26 | disposition left against medical advice (07) | DRG 280 ==
LOC: MED 05:35 → MTU 09:44 → MIC 16:05
PROVIDERS: ADMIT Hospitalist; ATTEND Hospitalist
DX: I13.0 Hypertensive heart and chronic kidney disease with heart failure and stage 1 through stage 4 chronic kidney disease, or unspecified chronic kidney disease (principal); I50.23 Acute on chronic systolic (congestive) heart failure; I21.A1 Myocardial infarction type 2; J96.21 Acute and chronic respiratory failure with hypoxia; I47.20 Ventricular tachycardia, unspecified; I42.8 Other cardiomyopathies; Z53.29 Procedure and treatment not carried out because of patient's decision for other reasons; N18.9 Chronic kidney disease, unspecified; E78.5 Hyperlipidemia, unspecified; I25.10 Atherosclerotic heart disease of native coronary artery without angina pectoris; G47.33 Obstructive sleep apnea (adult) (pediatric); I48.0 Paroxysmal atrial fibrillation; I44.7 Left bundle-branch block, unspecified; Z79.01 Long term (current) use of anticoagulants; Z88.8 Allergy status to other drugs, medicaments and biological substances; Z79.899 Other long term (current) drug therapy; Z95.810 Presence of automatic (implantable) cardiac defibrillator
CPT/HCPCS: 36415; 71045; 80053; 80305; 83735; 83880; 84100; 84484; 85025; 85379; 85610; 85730; 87081; 93005; 96365; 96375; 99291; J0282; J1644; J1940; J2060; J3490; J7060

== ENCOUNTER 2023-01-19 13:12 | Emergency (ER) | payer OTHER ==
[~2023-01-19] VITALS: Ht 170.2 cm; Wt 83.0 kg
[2023-01-19 13:32] VITALS: BP 125/80; PULSE 91; RESP 18; TEMP 97.8; O2SAT 99
[2023-01-19 15:00] LABS: BASOPHILS # (AUTO) 0.1 K/uL (0.00-0.22); BASOPHILS % (AUTO) 0.6 % (0.0-2.0); EOSINOPHILS # (AUTO) 0.1 K/uL (0-0.4); EOSINOPHILS % (AUTO) 0.6 % (0.0-4.0); HEMATOCRIT 36.6 % (36-48); HEMOGLOBIN 11.7 g/dL (12.0-16.0); LYMPHOCYTES # (AUTO) 0.6 K/uL (2.5-16.5); LYMPHOCYTES % (AUTO) 5.7 % (20.5-51.1); MEAN CORPUSCULAR HEMOGLOBIN 29 pg (27-31); MEAN CORPUSCULAR HGB CONC 32 g/dL (33-37); MEAN CORPUSCULAR VOLUME 89.9 fL (80-94); MONOCYTES # (AUTO) 0.8 K/uL (0.8-1.0); MONOCYTES % (AUTO) 8.6 % (1.7-9.3); NEUTROPHILS # (AUTO) 8.2 K/uL (1.8-7.7); NEUTROPHILS % (AUTO) 84.5 % (42.2-75.2); PLATELET COUNT (AUTO) 135 K/uL (140-450); RED BLOOD CELL COUNT(AUTO) 4.07 MIL/uL (4.20-5.40); RED CELL DISTRIBUTION WIDTH 19.6 % (11.6-13.7); WHITE BLOOD COUNT (AUTO) 9.8 K/uL (4.8-10.8)
[2023-01-19] MEDS ORDERED: MORPHINE SULFATE 4 MG/ML SYR IVP ONE (15:20)
[2023-01-19] MEDS ORDERED: FUROSEMIDE 100 MG/10 ML VIAL IVP ONE (15:40)
[2023-01-19 16:33] LABS: ALBUMIN 2.9 g/dL (3.4-5.0); ANION GAP 17.4 (8-16); CARBON DIOXIDE 24.2 mmol/L (21-32); CREATININE 3.1 mg/dL (0.6-1.3); POTASSIUM 3.6 mmol/L (3.5-5.1); TOTAL BILIRUBIN 2.5 mg/dL (0.0-1.0); TOTAL PROTEIN, SERUM 6.5 g/dL (6.4-8.2)
[2023-01-19 17:48] VITALS: O2SAT 99
[2023-01-19] MEDS ORDERED: ACET-503 PO (18:15)
[2023-01-19 20:00] VITALS: BP 127/64; PULSE 94; RESP 20; TEMP 97.8; O2SAT 98
== END 2023-01-19 20:00 | disposition home or self-care (01) ==
LOC: MED 13:12
DX: M25.561 Pain in right knee (principal); M25.562 Pain in left knee; J44.9 Chronic obstructive pulmonary disease, unspecified; J45.909 Unspecified asthma, uncomplicated; I13.10 Hypertensive heart and chronic kidney disease without heart failure, with stage 1 through stage 4 chronic kidney disease, or unspecified chronic kidney disease; N18.9 Chronic kidney disease, unspecified; Z79.899 Other long term (current) drug therapy
CPT/HCPCS: 36415; 71045; 80053; 83880; 84484; 85025; 93005; 96374; 96375; 99285; J1940; J2270